=== PATIENT | male | born 1960 | race Caucasian/White ===

== ENCOUNTER → 2017-08-28 | Outpatient (CLI) | payer OTHER ==
[~2017-08-28] MED LIST: AMBIEN 10 MG TA10 MG PO; ATORVASTATIN CA40 MG PO; BETIMOL5 ML INTRAOCULR; CARISOPRODOL 3350 MG PO; CYCLOBENZAPRINE5 MG PO; DOXYCYCLINE 10100 MG PO; FLEXERIL PO; GABAPENTIN 100100 MG PO; INDAPAMIDE2.5 MG PO; LISINOPRIL20 MG PO; MUPIROCIN22 GM TRANSDERM; NAPROSYN500 MG PO; NEURONTIN 300300 M1 PO; NORCO 10-325 T1 EACH PO; NORCO 5-325 TA1 EACH PO; RESTASIS1 EACH OPHTHALMIC; SOMA250 MG PO; XANAX 0.5 MG0.5 MG PO; ZANAFLEX4 MG PO; ZOCOR20 MG PO; ZOCOR40 MG PO; ZOLPIDEM TART12.5 M1 PO; melatonin PO
--- NOTE | 2017-08-30 08:15 | PAINCON ---
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 Last seen in Pain Clinic on 07/31/2017. We had repeated his left ilioinguinal and left genitofemoral nerve blocks. Continued patient on baseline medication including hydrocodone 10/325 up to 4 a day. The patient had injured his left shoulder back in October. X-rays last Saturday showed small nodule in the left lung. He is waiting for a CT of the chest. MRI of the left shoulder is pending. We talked about possibly moving forward with left shoulder injection if pain continues problematic. Currently, the patient presents to Pain Clinic today noting his pain is a 3-4 on a VAS in the groin, 4-5 on his left shoulder. Continues the hydrocodone 10/325 up to 4 a day, gabapentin 300 mg b.i.d. PHYSICAL EXAMINATION: Shows 5 feet 10 inches, 189-pound gentleman, BMI is 27.1 kg/m2. Blood pressure 120/80, pulse 74, respiration 16. Very tender over the left ilioinguinal genitofemoral area with pain radiating into the testicle. Lower extremity strength is generally symmetric. Gait is mildly antalgic due to left groin pain. Again, pain in the left shoulder, decreased range of motion, slight decrease in strength. We reviewed the fact that opiate medications are being used to provide analgesia adequate to support activities of daily living, not attempting to achieve a specific pain score on the 0-10 Visual Analog Scale. The current opiate medications are providing sufficient analgesia to allow the patient to participate in activities of daily living. The patient is not exhibiting any aberrant behavior suggestive of drug diversion. The patient is not having any adverse reactions to medications. The patient is not suffering from daytime somnolence or mental acuity changes. The patient is managing opiate-induced constipation with appropriate etbe-lsf-juetaar agents and dietary considerations. The patient was counseled on concern for caution with operating a motor vehicle while using opiate medications. A physical exam was performed and the patient's functional status was evaluated. All patients with back pain were advised against the bed rest greater than 4 days and were advised to return to normal activities. Pain score assessment was noted and the treatment plan was reviewed [place] [address] PAIN MANAGEMENT CONSULTATION Name: DARIEN MENDEZ [id number] Admission: 08/28/17 Attend Phys: Danelle Rangel Discharge: Date of : 60 Report #: [id number] medications, both prescribed and OTC were reviewed and reconciled on the electronic medical record. Tobacco screening was accomplished and smoking cessation was advised when indicated. BMI was noted and diet/exercise modification was recommended for all patients following outside normal parameters. I reviewed with the patient today their responsibilities to safeguard prescription medications, reviewed their responsibility to utilize medications only as prescribed by the physician. They are to seek and receive pain medications only from 1 physician group ( [facility]). They are to use 1 pharmacy and keep the clinic informed if they change pharmacies. Their responsibilities include making followup visits in a timely fashion and to avoid abrupt discontinuation of medication usage. Their responsibilities further include bringing their medications (bottles from the pharmacy with residual pills) to the visit for possible confirmation of pill counts and the patient understands it is their responsibility to submit to random drug screens to ensure both that the medications prescribed are present, and that no other controlled substances are present. All prescriptions provided today were generated electronically. ASSESSMENT: Symptomatic ilioinguinal and genitofemoral nerve pain requiring high-risk complex medication management. RECOMMENDATIONS: 1. Continue gabapentin 300 mg b.i.d. We will resume naproxen sodium 500 mg b.i.d. We will need to check BUN and creatinine in the near future. 2. Ilioinguinal and genitofemoral nerve blocks accomplished today. ASSESSMENT #1: Ilioinguinal nerve pain and genitofemoral nerve pain. PROCEDURE: Left ilioinguinal nerve block. PROCEDURE NOTE: After written informed consent was obtained, the patient placed in the supine position. Skin overlying the anterosuperior iliac spine was cleansed with alcohol. Using 25-gauge needle 4 mL of 0.5 of preservative-free bupivacaine plus 20 mg triamcinolone was injected in a fanlike fashion. ASSESSMENT #2: Genitofemoral neuralgia. PROCEDURE: Genitofemoral nerve block. PROCEDURE NOTE: After written informed consent was obtained and the original ilioinguinal nerve block was accomplished, attention was directed at the left side of the pubic tubercle. Area was cleansed with alcohol. Using 25-gauge needle, 20 mg triamcinolone plus 4 mL of 0.5% preservative-free bupivacaine was injected in a fanlike fashion. Needle was removed. The area was cleansed and Band-Aids applied. The patient monitored for an appropriate period of time, [place] [address] PAIN MANAGEMENT CONSULTATION Name: VANESSADARIEN Anders Room: [facility] Mesha#: [id number] Admission: 08/28/17 Attend Phys: Danelle Rangel Discharge: Date of : 60 Report #: [id number] discharged in good stable condition with some subjective weakness in the left quadriceps. appears to be spread of local anesthetic from the ilioinguinal nerve block along the femoral nerve root. Assured the patient this should likely resolve. If it is not in 24 hours, we will have the patient report to the ER for further evaluation. <ELECTRONICALLY SIGNED> By: Shaheen Abraham DO 08/30/17 0815 0751 [id number] Abraham DO /nt
== END | disposition home or self-care (01) ==
LOC: M.PC 02:02
DX: M79.2 Neuralgia and neuritis, unspecified (principal); Z88.0 Allergy status to penicillin; Z79.891 Long term (current) use of opiate analgesic; Z79.899 Other long term (current) drug therapy

== ENCOUNTER → 2017-09-25 | Outpatient (CLI) | payer OTHER ==
--- NOTE | 2017-09-30 07:21 | PAINCON ---
[facility] [address] [place] [address] PAIN MANAGEMENT CONSULTATION Name: VANESSADARIEN Room: [facility] Zimmer#: [id number] Admission: 09/25/17 Attend Phys: Danelle Rangel Discharge: Date of : 60 Report #: [id number] THIS REPORT FOR: //name// CC: Martha Abraham The patient is a very pleasant 56-year-old gentleman, long treated for lumbar radiculopathy with component of genitofemoral and ilioinguinal neuralgia, requiring high risk complex medication management. Last seen in the pain clinic 08/28/2017. The patient was continued on hydrocodone 10/325 up to 4 a day. Gabapentin 300 mg b.i.d. and Naprosyn 500 mg b.i.d. He returns to pain clinic today. Notes that while the ilioinguinal and genitofemoral nerve blocks have been efficacious, he is starting to see a dwindling efficacy. He remarked that in 2013, he was getting lumbar epidural injections (L2-L3 left of midline) with excellent improvement of baseline pain at that time. He returns to pain clinic today noting subjective pain score 2 on a VAS, again pain in the left groin with slight decreased left hip flexion strength. 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 He was given IM and p.o. steroids and this is resolving nicely. PHYSICAL EXAMINATION: Today, shows 5 feet 10 inches, 184 pounds gentleman, BMI is 26.5 kg/m2. He is afebrile, temperature is 98.1, and blood pressure 117/71, pulse 78, and respiration 16. Again, pain in the left groin radiating into the anterior thigh, left testicular pain overall seems to be somewhat improved. Modestly antalgic gait, decreased left hip flexion strength. ASSESSMENT: 1. Symptomatic lumbar radiculopathy, ilioinguinal neuralgia, genitofemoral neuralgia, requiring high risk complex medication management. 2. Ilioinguinal and genitofemoral neuralgia RECOMMENDATION: 1. I will renew hydrocodone 10/325 up to 4 a day. 2. Renewed gabapentin 300 mg b.i.d., I have taken the liberty of writing for a 90-day prescription with 3 refills. 3. We will seek authorization for epidural injection under fluoroscopy, left of midline L2-L3 at next visit. PROCEDURE #1: Left ilioinguinal nerve block. PROCEDURE NOTE: After written informed consent was obtained, [place] [address] PAIN MANAGEMENT CONSULTATION Name: VANESSADARIEN Room: [facility] Zimmer#: [id number] Admission: 09/25/17 Attend Phys: Danelle Rangel Discharge: Date of : 60 Report #: [id number] placed in supine position. Skin overlying the anterior superior iliac spine was cleansed with alcohol. Using a 25-gauge needle, point approximately 1-2 cm medial and inferior to the ASIS, needle was injected in a fanwise fashion. Next, 5 mL of 0.5 preservative-free bupivacaine was injected. PROCEDURE #2: Left genitofemoral nerve block. PROCEDURE NOTE: After ilioinguinal nerve block was accomplished and with the same risk and benefit discussion, a skin wheal with Xylocaine was raised and a 25-gauge needle was used to inject 5 mL of 0.5% preservative-free bupivacaine from a point immediately superior to the lateral aspect of the pubic tubercle and injectate was in a fanwise medial fashion to cover the genitofemoral nerve. Needle was removed, the area was cleansed, Band-Aids applied. The patient was monitored for an appropriate period of time, discharged in good and stable condition. Follow up in 30 days for reevaluation and consideration for epidural injection at that time. <ELECTRONICALLY SIGNED> By: Shaheen Abraham DO 09/30/17 0721 0849 [id number] Abraham DO /nt
== END | disposition home or self-care (01) ==
LOC: M.PC 01:31
DX: G57.82 Other specified mononeuropathies of left lower limb (principal); G57.22 Lesion of femoral nerve, left lower limb; M54.16 Radiculopathy, lumbar region; Z79.899 Other long term (current) drug therapy

== ENCOUNTER → 2017-10-23 | Outpatient (CLI) | payer OTHER ==
--- NOTE | 2017-10-24 10:21 | PAINCON ---
[address] [address] PAIN MANAGEMENT CONSULTATION Name: DARIEN MENDEZ Room: [facility] Zimmer#: [id number] Admission: 10/23/17 Attend Phys: Danelle Rangel Discharge: Date of : 60 Report #: [id number] THIS REPORT FOR: //name// CC: Martha Abraham DATE OF SERVICE: 10/23/2017 The patient is a pleasant 57-year-old gentleman typically treated for ilioinguinal neuralgia, genitofemoral neuralgia (all on the left), complex medication management for chronic pain syndrome with component of lumbar radiculopathy. Last seen in pain clinic 09/25/2017. The patient was given ilioinguinal and genitofemoral nerve blocks at that time (sans steroid). The patient notes again incremental relief following the injection, though he does get longer relief with steroid injection. He was continued on hydrocodone 10/325 up to 4 a day with efficacy for chronic pain. We talked about moving forward with epidural injection for ongoing lumbar radicular pain. 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 He had prior had lumbar epidural injections [place] [address] Jose Joseph with some efficacy for radicular pain. He incidentally notes he has pain in the left shoulder, which occurred in a work-related injury. He had some point tenderness in the infraspinatus muscle with some radiation into the shoulder. Diagnostic studies are pending currently. PHYSICAL EXAMINATION: Otherwise shows pleasant 57-year-old gentleman, BMI is 26.5 kilograms per meter squared. Blood pressure 102/55, pulse 72, respirations are 18. Subjective pain score is 3-4 on a VAS. Pain in the left groin is exacerbated with standing and walking. Lower extremity strength is preserved. Modestly positive straight leg raise on the left with slight decreased left hip flexion strength corresponding to a component of left L3 radicular pain as well. Again, some point tenderness over the infraspinatus muscle. We reviewed the fact that opiate medications are being used to provide analgesia adequate to support activities of daily living, not attempting to achieve a specific pain score on the 0-10 Visual Analog Scale. The current opiate medications are providing sufficient analgesia to allow the patient to participate in activities of daily living. The patient is not exhibiting any aberrant behavior suggestive of drug diversion. The patient [place] [address] PAIN MANAGEMENT CONSULTATION Name: DARIEN MENDEZ Room: [facility]#: [id number] Admission: 10/23/17 Attend Phys: Danelle Rangel Discharge: Date of : 60 Report #: [id number] adverse reactions to medications. The patient is not suffering from daytime somnolence or mental acuity changes. The patient is managing opiate-induced constipation with appropriate loki-uph-uldkjpd agents and dietary considerations. The patient was counseled on concern for caution with operating a motor vehicle while using opiate medications. A physical exam was performed and the patient's functional status was evaluated. All patients with back pain were advised against the bed rest greater than 4 days and were advised to return to normal activities. Pain score assessment was noted and the treatment plan was reviewed with the patient. All current medications, both prescribed and OTC were reviewed and reconciled on the electronic medical record. Tobacco screening was accomplished and smoking cessation was advised when indicated. BMI was noted and diet/exercise modification was recommended for all patients following outside normal parameters. I reviewed with the patient today their responsibilities to safeguard prescription medications, reviewed their responsibility to utilize medications only as prescribed by the physician. They are to seek and receive pain medications only from 1 physician group ( [facility]). They are to use 1 pharmacy and keep the clinic informed if they change pharmacies. Their responsibilities include making followup visits in a timely fashion and to avoid abrupt discontinuation of medication usage. Their responsibilities further include bringing their medications (bottles from the pharmacy with residual pills) to the visit for possible confirmation of pill counts and the patient understands it is their responsibility to submit to random drug screens to ensure both that the medications prescribed are present, and that no other controlled substances are present. All prescriptions provided today were generated electronically. ASSESSMENT: Symptomatic lumbar radiculopathy, genitofemoral neuralgia and ilioinguinal neuralgia, requiring complex medication management. RECOMMENDATIONS: 1. Renew hydrocodone 10/325. I have taken the liberty of writing for 2 months of current medication. Reviewing the patient's opiate consent to treat contract, I noted that there is not a recent random drug screen, we will make a note and get a random buccal swab at next visit. 2. Chronic ilioinguinal and genitofemoral neuralgia. Recommendation, ilioinguinal and genitofemoral nerve blocks today with 20 mg triamcinolone each site. PROCEDURE NOTE [address] [address] PAIN MANAGEMENT CONSULTATION Name: DARIEN MENDEZ Room: [facility]#: [id number] Admission: 10/23/17 Attend Phys: Danelle Rangel Discharge: Date of : 60 Report #: [id number] PROCEDURE NUMBER ONE: Ilioinguinal nerve block. DESCRIPTION OF PROCEDURE: After written informed consent was obtained, the patient was placed in supine position. Skin overlying the left groin was cleansed with alcohol. Using 25-gauge needle insertion 0.12 cm inferior and medial to the anterior superior iliac spine on the left, 2 inch 25 gauge needle was injected in a fan-sauceda fashion delivering 20 mg triamcinolone plus 4 mL of 0.5% preservative-free bupivacaine. Needle was removed. PROCEDURE NUMBER TWO: Left genitofemoral nerve block. PROCEDURE NOTE: After initial ilioinguinal nerve block, attention was then directed at the pubic tubercle. An approximately 1 cm superior and lateral to the left superior border of the pubic tubercle was cleansed with alcohol, using a 25 gauge 2 inch needle was injected in a linear fashion immediately distributing another 20 mg triamcinolone plus 4 mL of 0.5% preservative-free bupivacaine. After both procedures were accomplished, needles removed. The area was cleansed, Band-Aids applied. The patient monitored for an appropriate period of time, discharged in good and stable condition. Follow up in 1 month. <ELECTRONICALLY SIGNED> By: Shaheen Abraham DO 10/24/17 1021 1214 [id number] Harrison Abraham DO /nt
== END | disposition home or self-care (01) ==
LOC: M.PC 03:36
DX: M54.16 Radiculopathy, lumbar region (principal); G58.8 Other specified mononeuropathies

== ENCOUNTER → 2017-11-20 | Outpatient (CLI) | payer OTHER ==
--- NOTE | 2017-11-22 09:51 | PAINCON ---
[address] [address] PAIN MANAGEMENT CONSULTATION Name: DARIEN MENDEZ [facility] [id number] Admission: 11/20/17 Attend Phys: Danelle Rangel Discharge: Date of : 60 Report #: [id number] THIS REPORT FOR: //name// CC: Martha Abraham DATE OF SERVICE: 11/20/2017 The patient is a very pleasant 57-year-old gentleman long treated at the [facility] prior by Dr. Jose Joseph and then in the last 2 years or more by myself. Suffers from a left ilioinguinal and genitofemoral neuralgia and has history of lumbar radiculopathy. More recently, he had had some trauma to the left shoulder, symptoms compatible with rotator cuff tear. We had planned on seeing patient today for lumbar epidural injection for radicular component of pain. While the injections have been helpful, his insurance issues have been quite problematic. He has been trying to see me regarding the left shoulder, but there may be a work comp issue. Unfortunately, we are unable to obtain authorization for the lumbar epidural injection for more radicular component of pain. He does note pain is quite problematic in the left groin, exacerbated with any activity. Fairly nominal today because he has been fairly sedentary, but with general work, pain gets up to 6 or 7 and interferes with function. He does take hydrocodone 10/325 up to 4 a day for breakthrough pain. He does note, however, that pain becomes quite problematic, again pain started to interfere with functional status. PHYSICAL EXAMINATION: Shows 5 feet 10 inches, 177-pound gentleman, BMI is 25 kg/m2. Blood pressure 112/61, pulse 83, respirations 16. Cervical range of motion is full. Does have decreased range of motion in left shoulder, though this exam was somewhat deferred. Diffuse tenderness across the low back, very tender in the left groin area radiating into the testicle. Physical examination compatible with: 1. Ilioinguinal and genitofemoral neuralgia. 2. Symptomatic lumbar radiculopathy by history, he has done well with epidural injections for more radicular component of pain. We reviewed the fact that opiate medications are being used to provide analgesia adequate to support activities of daily living, not attempting to achieve a specific pain score on the 0-10 Visual Analog Scale. The current opiate medications are providing sufficient analgesia to allow the patient to participate in activities of daily living. The patient is not exhibiting any aberrant behavior suggestive of drug diversion. The patient is not having any adverse reactions to medications. The patient [place] [address] PAIN MANAGEMENT CONSULTATION Name: VANESSADARIEN Anders Room: [facility] Mesha#: [id number] Admission: 11/20/17 Attend Phys: Danelle Rangel Discharge: Date of : 60 Report #: [id number] somnolence or mental acuity changes. The patient is managing opiate-induced constipation with appropriate memv-spn-eoykcqy agents and dietary considerations. The patient was counseled on concern for caution with operating a motor vehicle while using opiate medications. A physical exam was performed and the patient's functional status was evaluated. All patients with back pain were advised against the bed rest greater than 4 days and were advised to return to normal activities. Pain score assessment was noted and the treatment plan was reviewed with the patient. All current medications, both prescribed and OTC were reviewed and reconciled on the electronic medical record. Tobacco screening was accomplished and smoking cessation was advised when indicated. BMI was noted and diet/exercise modification was recommended for all patients following outside normal parameters. I reviewed with the patient today their responsibilities to safeguard prescription medications, reviewed their responsibility to utilize medications only as prescribed by the physician. They are to seek and receive pain medications only from 1 physician group ( [facility]). They are to use 1 pharmacy and keep the clinic informed if they change pharmacies. Their responsibilities include making followup visits in a timely fashion and to avoid abrupt discontinuation of medication usage. Their responsibilities further include bringing their medications (bottles from the pharmacy with residual pills) to the visit for possible confirmation of pill counts and the patient understands it is their responsibility to submit to random drug screens to ensure both that the medications prescribed are present, and that no other controlled substances are present. All prescriptions provided today were generated electronically. ASSESSMENT: Genitofemoral neuralgia, ilioinguinal neuralgia, groin pain, lumbar radiculopathy, and left shoulder pain. RECOMMENDATIONS: 1. We will renew hydrocodone 10/325. The patient is given a prescription for 100 tablets, release 4 weeks. 2. Genitofemoral and ilioinguinal nerve blocks today. 3. We will seek authorization to see the patient regarding left shoulder and consider lumbar epidural injection for ongoing radicular pain. PROCEDURE NOTE: Ilioinguinal and genitofemoral nerve blocks to be dictated later. <ELECTRONICALLY SIGNED> By: Shaheen Abraham DO 11/22/17 0951 1459 [id number] Abraham DO /nt
--- NOTE | 2017-11-22 09:51 | PAINCON ---
[facility] [address] [place] [address] PAIN MANAGEMENT CONSULTATION Name: DARIEN MENDEZ Room: [facility] Zimmer#: [id number] Admission: 11/20/17 Attend Phys: Danelle Rangel Discharge: Date of : 60 Report #: [id number] THIS REPORT FOR: //name// CC: Martha Abraham DATE OF SERVICE: 11/20/2017 PAIN CLINIC PROCEDURE NOTE PROCEDURES: 1. Ilioinguinal nerve block. 2. Genitofemoral nerve block. INDICATION: Ilioinguinal and genitofemoral neuralgia. PROCEDURE NOTE: After written informed consent obtained, the patient was placed in supine position. Skin overlying the left groin was cleansed with alcohol. A 25-gauge needle was inserted approximately 1-2 cm inferior medial to the left anterior superior iliac spine in a fanwise fashion. A 20 mg of triamcinolone plus 3 mL of 0.5% preservative-free bupivacaine was injected in the area covering the ilioinguinal nerve. Attention was then directed at the left ischial tubercle. This area again was cleansed with alcohol using a 25-gauge needle, the needle was inserted in a lateral medial directed fashion in somewhat of a fanwise distribution covering the ilioinguinal nerve, 20 mg triamcinolone plus 3 mL of 0.5% preservative-free bupivacaine was injected. Both needles removed. The area was cleansed and Band-Aids applied. The patient was monitored for an appropriate period of time, discharged in good and stable condition, noting incremental improvement in baseline pain. Followup is p.r.n. <ELECTRONICALLY SIGNED> By: Shaheen Abraham DO 11/22/17 0951 [id number] Abraham DO /nt
== END | disposition home or self-care (01) ==
LOC: M.PC 02:27
DX: G57.82 Other specified mononeuropathies of left lower limb (principal); G57.22 Lesion of femoral nerve, left lower limb; M25.512 Pain in left shoulder; Z88.0 Allergy status to penicillin; Z79.891 Long term (current) use of opiate analgesic; Z98.890 Other specified postprocedural states

== ENCOUNTER → 2017-11-29 | Outpatient (CLI) | payer OTHER | END | disposition home or self-care (01) | LOC: M.RAD 11-28 13:09 → M.MRI 11:00 | DX: M25.512 Pain in left shoulder (principal); Z88.0 Allergy status to penicillin; Z79.899 Other long term (current) drug therapy; Z79.891 Long term (current) use of opiate analgesic ==

== ENCOUNTER → 2017-12-04 | Outpatient (CLI) | payer OTHER ==
--- NOTE | 2017-12-05 06:52 | PAINCON ---
[address] [address] PAIN MANAGEMENT CONSULTATION Name: ANKUR MENDEZ [id number] Admission: 12/04/17 Attend Phys: Danelle Rangel Discharge: Date of : 60 Report #: [id number] THIS REPORT FOR: //name// CC: Martha Prado [facility] Shaheen Abraham ATTENTION: Dr. Mariela Andrade and Dr. Anukr Mandujano. 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 Presents to pain clinic today for new complaint, that being pain in the left shoulder. The patient notes he had a minor injury of the shoulder in October of 2015, had pain in the anterior left shoulder following carrying in some work related objects and opening the door at work. Was seen by the work comp physician. X-rays were ordered and he was scheduled for physical therapy. Range of motion, stretching and massage seem to improve symptoms. He did reasonably well until 08/21/2017. Again, carrying in some inconsequential objects, 10-pound computer monitor screens, about 20 repetitive cycles, he again noted acute exacerbation of pain in the left shoulder. Now it has developed to the point that the pain is in the scapula, radiating into the shoulder with tingling going into the middle fingers. He is left hand dominant. This is obviously problematic. Did get an MRI, arthroscopy of that shoulder. He returns to pain clinic today, noting pain is 2-3 on a VAS. Pain is exacerbated with any range of motion of the left shoulder. He is on some chronic analgesic agents including gabapentin 100 mg 3 a day, hydrocodone 10/325 three to four times a day, limit 100 tablets for 30 days for chronic back and ilioinguinal pain. This seems to help some with the shoulder. Physical exam shows 5 feet 10 inch, 178 pound gentleman, BMI is 25.6 kilograms per meter squared. Blood pressure 134/78, pulse 68, respirations 16. Alert and oriented to person, place and time and judged to be a reasonable historian. Left shoulder range of motion is limited, tender with movement of the shoulder, tender with stressing the shoulder, though muscle groups appear to be intact, specifically rotator, deltoid, biceps, triceps strength. We reviewed the MRI arthrogram from 11/29/2017. Concerningly the findings note extensive 270 degree labral tear with cleft of contrast involving the superior, anterior, inferior and posterior labrum sparing only the 11 to 9 positions, small paralabral cysts are noted along the posterior margin, the inferior posterior labrum at the 7-8 positions. Intact rotator cuff is noted. Mild AC joint, [place] [address] PAIN MANAGEMENT CONSULTATION Name: ANKUR MENDEZ Room: [facility] Zimmer#: [id number] Admission: 12/04/17 Attend Phys: Danelle Rangel Discharge: Date of : 60 Report #: [id number] Medication list was reconciled. ASSESSMENT: Left shoulder fairly extensive labral tear in a gentleman with multiple comorbidities including chronic pain from left ilioinguinal neuralgia, stable on complex medication management. RECOMMENDATION: We will refer to Orthopedics, the patient would prefer [facility]. We will send a copy of this dictation both to Eve Romero, the nursery manager for patient's work compensation as well as [facility], attention doctors Ankur Mandujano and Mariela Andrade. We will request consultation regarding surgical intervention for left shoulder. The patient was discharged in good and stable condition. Follow up as needed for medication management. Total contact time was approximately 45 minutes (08:00 - 08:45) reviewing therapeutic options, diagnostic studies, physical exam and counseling the patient regarding treatment options, specifically likely need for orthopedic surgical intervention. <ELECTRONICALLY SIGNED> By: Shaheen Abraham DO 12/05/17 0652 [id number] [id number] Abraham DO /nt
== END ==
LOC: M.PC 02:33
DX: M54.16 Radiculopathy, lumbar region (principal); M25.512 Pain in left shoulder; G89.29 Other chronic pain; Z79.899 Other long term (current) drug therapy

== ENCOUNTER → 2018-01-15 | Outpatient (CLI) | payer OTHER ==
--- NOTE | 2018-01-16 07:50 | PAINCON ---
[address] [address] PAIN MANAGEMENT CONSULTATION Name: DARIEN MENDEZ Room: [facility] Zimmer#: [id number] Admission: 01/15/18 Attend Phys: Danelle Rangel Discharge: Date of : 60 Report #: [id number] THIS REPORT FOR: //name// CC: Martha Abraham The patient is a 57-year-old gentleman, being seen for work comp related left shoulder pain, along with chronic left ilioinguinal groin pain and lumbar radicular pain. I have referred the patient to [facility], he saw Dr. Alexandro Raphael who recommended no surgical intervention at this time. There was concern the patient had been found to have pulmonary nodule and what appeared to be perhaps metastatic bony activity on diagnostic findings evaluating the shoulder. It turns out that he does have solitary discrete nodules in the lung, which do not appear to be a cancer. There is no adenopathy noted, and the lesion appeared to be discrete. His pulmonary physician has recommended "watchful waiting" with no interventional therapy at this time for the pulmonary lesions. Bony uptake changes thought related to prior rib fractures, healed. The patient was dissatisfied with the fact that the orthopedic surgeon recommended no surgery for his shoulder. He claims that he has significant impact in the functional status, though he appears to have somewhat improving range of motion left shoulder, albeit ongoing decreased strength. The patient has continued to take hydrocodone for chronic left groin and radicular pain, one tablet 2-4 times a day. Tizanidine 4 mg t.i.d. for spasm on a p.r.n. basis and gabapentin 300 mg b.i.d. PHYSICAL EXAMINATION: Otherwise shows ongoing axial back pain radiating to the left groin. Slight decreased left hip flexion strength. We sought authorization for epidural injection under fluoroscopy today. The patient requested we move forward with this. ASSESSMENT: 1. Chronic pain syndrome requiring complex medication management, history of ilioinguinal neuralgia and left shoulder rotator tear, no interventional therapy or medication changes for same. 2. Lumbar epidural injection under fluoroscopy today for ongoing lumbar radicular component of pain. PROCEDURE: Lumbar epidural injection under fluoroscopy. PROCEDURE NOTE: After both written and informed consent to include risk of spinal cord damage, increased pain, weakness and dural puncture, the patient was taken to the fluoroscopy suite, placed in the [place] [address] PAIN MANAGEMENT CONSULTATION Name: DARIEN MENDEZ Room: [facility]#: [id number] Admission: 01/15/18 Attend Phys: Danelle Rangel Discharge: Date of : 60 Report #: [id number] prep and drape, a skin wheal with lidocaine was raised. A 22-gauge epidural Tuohy needle was inserted in the midline at L3-4 with good loss to resistance. Negative aspiration for cerebrospinal fluid or blood was noted. Then 1 mL of Omnipaque under biplanar fluoroscopy showed good spread within the epidural space. This was followed with 60 mg of triamcinolone plus 1 mL of 1.5% preservative-free Xylocaine, 0.5 mL Xylocaine was then injected to flush the needle; it was removed. The patient was monitored for an appropriate period of time and discharged in good and stable condition. The patient was seen from 8:00 a.m. to 8:30 regarding other medical issues (left shoulder rotator cuff tear, pulmonary pathology and medication management). He was taken to the fluoroscopy suite at 9:08.. <ELECTRONICALLY SIGNED> By: Shaheen Abraham DO 01/16/18 0750 1429 [id number] Abraham DO /nt
== END | disposition home or self-care (01) ==
LOC: M.PC 03:54
DX: M54.16 Radiculopathy, lumbar region (principal); G89.4 Chronic pain syndrome; R10.30 Lower abdominal pain, unspecified; M25.512 Pain in left shoulder; Z98.890 Other specified postprocedural states; Z79.891 Long term (current) use of opiate analgesic; Z88.0 Allergy status to penicillin; Z79.899 Other long term (current) drug therapy

== ENCOUNTER → 2018-02-19 | Outpatient (CLI) | payer OTHER ==
--- NOTE | 2018-02-20 07:27 | PAINCON ---
[address] [address] PAIN MANAGEMENT CONSULTATION Name: DARIEN MENDEZ Room: [facility] Mesha#: [id number] Admission: 02/19/18 Attend Phys: Danelle Rangel Discharge: Date of : 60 Report #: [id number] THIS REPORT FOR: //name// CC: Alexandro Abraham DATE OF SERVICE: 02/19/2018 The patient is a 57-year-old gentleman long treated for lumbar radiculopathy, ilioinguinal neuralgia, requiring complex medication management. Comorbidity includes left shoulder pain, myofascial pain component. Last seen in pain clinic 01/15/2018. We sought authorization for trigger point injections left infraspinatus muscle. The patient did see Dr. Alexandro Raphael regarding left shoulder. I personally spoke to Dr. Raphael after the patient last visit (01/15/2018). Dr. Raphael suggested that he was trying to be as minimally invasive as possible. Suggested physical therapy. If, however, symptoms are not improving he said he would be happy to see the patient for reevaluation, consideration for surgery only if indicated. To the patient's credit, his range of motion is actually fairly good now. Left shoulder, though he does have subjective pain. Does have ongoing trigger point in the left infraspinatus muscle. The patient notes the last injection, epidural injection for lumbar radicular pain, left to midline L3-L4 (afforded a very good relief of his ilioinguinal pain. Better actually than the prior ilioinguinal injections, we have been doing). The patient continued hydrocodone 10/325 anywhere from 2-4 tablets a day, tizanidine 4 mg for spasm, gabapentin 300 mg b.i.d. RECOMMENDATIONS: We will seek authorization for repeat lumbar epidural injection left midline L3-L4 in 2 weeks. I did renew hydrocodone 10/325, dispensed 100 tablets for release in 4 weeks. We will have the patient follow up with Dr. Raphael for ongoing medication management. PROCEDURE NOTE: Left trigger point injections infraspinatus. DESCRIPTION OF PROCEDURE: After written informed consent was obtained, the patient placed in seated position. Skin overlying the left shoulder blade was cleansed with alcohol. Using 25-gauge needle, 20 mg triamcinolone plus 5 mL of 0.5% preservative-free bupivacaine was injected into and around the left infraspinatus muscle. The patient had good subjective relief of pain. Discharged in good and stable condition. Follow up in 2 weeks. <ELECTRONICALLY SIGNED> By: Shaheen Abraham DO 02/20/18 0727 1356 [id number] Abraham DO /nt
== END | disposition home or self-care (01) ==
LOC: M.PC 04:59
DX: M79.1 Myalgia (principal); Z98.890 Other specified postprocedural states; Z79.891 Long term (current) use of opiate analgesic; Z88.0 Allergy status to penicillin; Z79.899 Other long term (current) drug therapy

== ENCOUNTER → 2018-04-17 | Outpatient (CLI) | payer OTHER ==
--- NOTE | 2018-04-23 16:41 | PAINCON ---
[address] [address] PAIN MANAGEMENT CONSULTATION Name: DARIEN MENDEZ [facility] Zimmer#: [id number] Admission: 04/17/18 Attend Phys: Nanette Gar MD Discharge: Date of : 60 Report #: [id number] THIS REPORT FOR: //name// CC: Martha Gar DATE OF SERVICE: 04/17/2018 FOLLOWUP COMPLAINT: Pain in the inguinal area. HISTORY OF PRESENT ILLNESS: The patient is a 57-year-old gentleman who has been seen and followed in the pain clinic by Dr. Shaheen Abraham. 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 He had problems and underwent surgery for a left inguinal hernia. Since that time, scar tissue has developed. He has developed ilioinguinal neuralgia. He states that he has had injections in the area as well as huge conservative methods to help control the pain. He works as an IT person. Walking up and down stairs can really exacerbate his discomfort. He rates his pain as a 4-5 today. The weather is inclement. Usually it is about a 2. Does have some problems with osteoarthritis type symptoms involving his knee. Also, has some left shoulder discomfort as well. Often there is a waist band to help control the pain in the groin area. The patient has seen Dr. Thomas for his left shoulder. Physical therapy was suggested. The patient finds that his medical regimen of tizanidine, gabapentin and Seltzer are helpful. He would like to continue with these medications. He has returned to the pain clinic for renewal of his medications and the possibility of undergoing an epidural injection in the area of the ilioinguinal nerve in the future. ALLERGIES: PENICILLIN. MEDICATIONS: Xanax 0.5 mg, Lipitor 40 mg daily, Restasis one drop b.i.d., Neurontin 300 mg b.i.d., hydrocodone 10/325, indapamide 2.5 mg, lisinopril 20 mg, timolol intraocular, Zanaflex 4 mg t.i.d. and Ambien 10 mg at bedtime. PAST MEDICAL HISTORY: Hypertension, hyperlipidemia, hypercholesterolemia, colon problems, stomach problems and joint disease. 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 REVIEW OF SYSTEMS: Generally good health, some weight change, ringing in the ears, bowel changes, [place] [address] PAIN MANAGEMENT CONSULTATION Name: DARIEN MENDEZ Room: [facility] Zimmer#: [id number] Admission: 04/17/18 Attend Phys: Nanette Gar MD Discharge: Date of : 60 Report #: [id number] LABORATORY DATA: No new laboratory is available at the time of our interview. PAIN CLINIC ASSESSMENT: 1. Osteoarthritic changes in the knee. 2. Height 5 feet 10 inches, weight 176 pounds, BMI is 25.3. 3. Vital signs: Blood pressure 138/85, heart rate 77, respiratory rate 16, room air saturation 97% and temperature 98.6. 4. Pain score 4/10. Oftentimes is a 2. 5. Fall risk. The patient has not fallen in the last 3 months. 6. Blood thinner. The patient is not on a blood thinning medication. 7. Hypertension. The patient is being treated for hypertension. 8. Opioid therapy greater than 6 weeks. The patient is on an opioid regimen and takes his hydrocodone as tolerated his pain. 9. Risk assessment tool. 10. Functional assessment tool. 11. Recreational drug use. 12. Tobacco. 13. Alcohol: The patient denies use of alcoholic beverages. PHYSICAL EXAMINATION: GENERAL: The patient is a well-developed, well-nourished white male. Appears his stated age. He is alert and oriented x 3. Affect is appropriate. Speech is fluent. HEENT: Normocephalic, atraumatic. Extraocular eye muscles intact. Sclerae nonicteric. Mucous membranes are moist. The patient states that he has had a detached retina in 2017. NECK: Without adenopathy or JVD. LUNGS: Clear to auscultation. HEART: Regular rate. ABDOMEN: Nontender. MUSCULOSKELETAL: Without significant scoliosis, kyphosis or lordosis. The patient has pain and discomfort in the right groin area. Also, has some pain in the mid back area in the left paraspinous area. IMPRESSION: Chronic right ilioinguinal neuropathy, hypertension, hyperlipidemia, hypercholesterolemia, colon problems, stomach problems and joint disease. RECOMMENDATIONS: We discussed treatment options with the patient. We will continue with his current medication regimen. He feels that gabapentin 100 mg, tizanidine 4 mg, hydrocodone 10/325 one p.o. q. 4 hours p.r.n. is helpful. A script for 2 months of medication has been written. The patient will follow up in the near future. He would like to undergo a thoracic epidural steroid injection in the area of the origination of the ilioinguinal nerve. Injections in that area in the past have been helpful. When he returns, we will consider [address] [address] PAIN MANAGEMENT CONSULTATION Name: DARIEN MENDEZ Room: [facility] Zimmer#: [id number] Admission: 04/17/18 Attend Phys: Nanette Gar MD Discharge: Date of : 60 Report #: [id number] an injection. We would like to thank you for letting us participate in his care. We hope he continues to improve. <ELECTRONICALLY SIGNED> By: Nanette Gar MD 04/23/18 1641 1542 [id number]. Braulio Gar MD /nt
== END ==
LOC: M.PC 03:23
DX: G62.89 Other specified polyneuropathies (principal); I10 Essential (primary) hypertension; E78.5 Hyperlipidemia, unspecified; E78.00 Pure hypercholesterolemia, unspecified

== ENCOUNTER → 2018-05-27 | Outpatient (CLI) | payer OTHER ==
--- NOTE | 2018-07-09 15:49 | PAINCON ---
[address] [address] PAIN MANAGEMENT CONSULTATION Name: DARIEN MENDEZ Room: [facility] Cresencio.#: [id number] Admission: 05/27/18 Attend Phys: Nanette Gar MD Discharge: Date of : 60 Report #: [id number] THIS REPORT FOR: //name// CC: Martha Gar DATE OF SERVICE: 05/27/2018 FOLLOWUP COMPLAINT: Left groin pain. HISTORY OF PRESENT ILLNESS: The patient is a 57-year-old gentleman who has been seen in the pain clinic and followed by Dr. Shaheen Son. The patient has continued to have pain and discomfort involving his left inguinal area. He was in the for almost 20 years. He had surgery in the left groin area. He has been told that he developed some ilioinguinal scar tissue. He has had some injections in this area in the past. 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 He notes that walking up and down stairs and activities can exacerbate his pain. Rates his pain as a 3-4/10 today. Also, has some osteoarthritic changes involving his left shoulder and his knee. Finds that his medical regimen of tizanidine, gabapentin and [place] are helpful. He has returned to the pain clinic on with the desire to undergo an epidural injection to help improve the pain and discomfort, which he is experiencing. ALLERGIES: PENICILLIN. MEDICATIONS: Zanaflex 0.5 mg, Lipitor 40 mg daily, Restasis one drop b.i.d., Neurontin 300 mg b.i.d., hydrocodone 10/325, indapamide 2.5 mg, lisinopril 20 mg, Timolol intra-articular, Zanaflex 4 mg t.i.d., Ambien 10 mg at bedtime. PAIN CLINIC ASSESSMENT/PQRS: 1. Osteoarthritic changes involving his knee. The patient is not being treated for rheumatoid arthritis. 2. Height 5 feet 10 inches, weight 186 pounds, BMI 25.3. 3. Vital signs: Blood pressure 127/72, heart rate 69, respiratory rate 16, room air saturation 96%, temperature 98.0. 4. Pain score 3-4/10. 5. Fall risk. The patient has not fallen in the last 3 months. 6. Blood thinner. The patient is not on a blood thinning medication. 7. Hypertension. The patient is being treated for hypertension. 8. Opioid therapy greater than 6 weeks. The patient is on an opioid regimen and refuses medication from one source. 9. Risk assessment tool. 10. Functional assessment tool. 11. Recreational drug use. The patient denies use of recreational drugs. 12. Tobacco: The [place] [address] PAIN MANAGEMENT CONSULTATION Name: DARIEN MENDEZ Room: [facility]#: [id number] Admission: 05/27/18 Attend Phys: Nanette Gar MD Discharge: Date of : 60 Report #: [id number] 11. Alcohol: The patient denies frequent use of alcoholic beverages. PHYSICAL EXAMINATION: GENERAL: The patient is a well-developed, well-nourished white male. He appears his stated age. He is alert and oriented x 3. Affect is appropriate. Speech is fluent. HEENT: Normocephalic, atraumatic. Extraocular eye muscles intact. Sclerae nonicteric. Mucous membranes are moist. NECK: Without adenopathy or JVD. LUNGS: Clear to auscultation without, rales or rhonchi. HEART: Regular rate. S1, S2. ABDOMEN: Nontender. MUSCULOSKELETAL: Without significant scoliosis, kyphosis or lordosis. The patient does have some pain and discomfort in the lower portion of his mid back, also has some left paraspinous muscle tenderness. The patient has some pain and discomfort, pain involving the left groin area. IMPRESSION: 1. Chronic ilioinguinal neuropathy. 2. Hypertension. 3. Hyperlipidemia. 4. Hypercholesterolemia. 5. Chronic colon problems. 6. Stomach problems and joint disease. RECOMMENDATIONS: We discussed treatment options with the patient. Risks and benefits of an injection were again discussed. Possible complications of the procedure were discussed and reviewed. We explained the possibility of bleeding, infection, spinal headache, nerve damage/paralysis weakness and the patient elects to proceed. PROCEDURE NOTE: The patient was taken to the examination area. He was then assisted in getting on the examination table. He was placed in the prone position, a 0.25% bupivacaine was infiltrated in the midline area was injected at L2-L3. A left paraspinous direction was chosen. The patient states today most of his pain and discomfort was involving the left side. Using anterior and posterior viewing appropriate location was noted. A total of 80 mg Depo-Medrol, 40 mg triamcinolone and 2 mL of 0.25% bupivacaine was injected. The patient tolerated the procedure well. There were no complications. Total of 9 seconds fluoroscopy time was used. The patient was then taken to the recovery room. He remained there for an appropriate amount of time. There were no complications. He will follow up in the near future. We would like to thank you for letting us participate in his care. We hope he continues to improve. He will continue [address] [address] PAIN MANAGEMENT CONSULTATION Name: DARIEN MENDEZ Room: [facility] Zimmer#: [id number] Admission: 05/27/18 Attend Phys: Nanette Gar MD Discharge: Date of : 60 Report #: [id number] with his current medications of gabapentin, tizanidine, and [place] 3.5 1 p.o. q. 4-6 hours p.r.n. pain. <ELECTRONICALLY SIGNED> By: Nanette Gar MD 07/09/18 1549 1212 [id number]. Braulio Gar MD /nt
== END | disposition home or self-care (01) ==
LOC: M.PC 04:51
DX: M54.5 Low back pain (principal); G62.9 Polyneuropathy, unspecified; I10 Essential (primary) hypertension; E78.5 Hyperlipidemia, unspecified; E78.00 Pure hypercholesterolemia, unspecified; Z88.0 Allergy status to penicillin; Z79.899 Other long term (current) drug therapy; Z79.891 Long term (current) use of opiate analgesic; Z98.49 Cataract extraction status, unspecified eye

== ENCOUNTER → 2018-08-05 | Outpatient (CLI) | payer OTHER ==
--- NOTE | ~2018-08-05 | PAINCON ---
[address] [address] PAIN MANAGEMENT CONSULTATION Name: DARIEN MENDEZ Room: [facility] Mesha#: [id number] Admission: 08/05/18 Attend Phys: Nanette Gar MD Discharge: Date of : 60 Report #: [id number] THIS REPORT FOR: //name// CC: Martha Gar DATE OF SERVICE: 08/05/2018 FOLLOWUP COMPLAINT: Pain in the low back area down into the groin. FOLLOWUP HISTORY: The patient is a 57-year-old gentleman who has been followed in the pain clinic because of chronic pain. He has pain and discomfort involving his left inguinal area. The patient has had this problem for about 20 years. He has had surgery in the groin area for a number of times. He has been told that he has developed an inguinal scar tissue. In the past, he has had injections in that area. Because of its proximity to the femoral nerve it was noted a number of times where he developed some weakness in his leg as a result of the local anesthetic. He finds that injection in his low back area at the L2-L3 area has been as successful. At this juncture, he has returned today with a desire to undergo another epidural steroid injection to help quell the pain and discomfort. He has had no complication from the procedures with the epidural in the past. He desires another injection. He has had hernia surgery in that area 4 times. He has also been working on weight loss. He states that he has been inactive. Then, he has noted a 25-pound weight increase. He is working to decrease that weight gain. ALLERGIES: PENICILLIN. CURRENT MEDICATIONS: Zanaflex 0.5 mg, Lipitor 40 mg, Restasis one drop b.i.d., Neurontin 300 mg b.i.d., hydrocodone 10/325, indapamide 2.5 mg, lisinopril 20 mg, Timolol intra-articular, Zanaflex 4 mg t.i.d., and Ambien 10 mg at bedtime. PAIN CLINIC ASSESSMENT/PQRS: 1. Osteoarthritis is noted in his knee. He has not been treated for rheumatoid arthritis. 2. Height 5 feet 10 inches, weight 205 pounds, BMI is 29.6. 3. Vital Signs: Blood pressure 136/87, heart rate 84, respiratory rate 16, room air saturation 92%, temperature 98.6. 4. Pain intensity of 3/10. 5. Fall history: The patient has not fallen in the last 3 months. 6. Blood thinner. The patient is not on a blood thinning medication. 7. Hypertension. The patient has been treated for hypertension. 8. Opioid greater than 6 weeks. The patient received medication from one source, [place] [address] PAIN MANAGEMENT CONSULTATION Name: DARIEN MENDEZ Room: [facility]#: [id number] Admission: 08/05/18 Attend Phys: Nanette Gar MD Discharge: Date of : 60 Report #: [id number] 9. Risk assessment tool, low for opioid use. 10. Functional assessment tool. 11. Recreational drug use. The patient denies use of recreational drugs. 12. Tobacco: The patient denies use of tobacco. 13. Alcohol. The patient drinks socially/occasional. PHYSICAL EXAMINATION: GENERAL: The patient is a well-developed, well-nourished white male. Appears his stated age. He is alert and oriented x 3. His affect is appropriate. Speech is fluent. HEENT: Normocephalic, atraumatic. Extraocular eye muscles intact. Sclerae nonicteric. Mucous membranes are moist. NECK: Without adenopathy or JVD. LUNGS: Clear to auscultation without rales or rhonchi. HEART: Regular rate. S1, S2. ABDOMEN: Nontender. Bowel sounds present. MUSCULOSKELETAL: Without significant scoliosis, kyphosis or lordosis. The patient does have pain and discomfort in the lower portion of his abdominal area in the area of the groin, this involves the left side. Muscle strength in lower extremities judged to be 5/5 for the major muscle groups without sensory change. IMPRESSION: 1. Chronic inguinal neuropathy, left side. 2. Hypertension. 3. Hyperlipidemia. 4. Hypercholesterolemia. 5. Chronic colon problems. 6. Stomach problems with joint disease. RECOMMENDATIONS: We discussed treatment options with the patient. Risks and benefits of an epidural steroid injection in the L2-L3 area were again reviewed. The patient noted benefit from the last injection. He had no complications. He has returned today with a desire to undergo another injection. He has gleaned greater than 60% improvement in his pain after the injections. He would also like to continue with his Sargeant medication and tizanidine. He would like to have these medications as well as the gabapentin renewed. PROCEDURE NOTE: We are again discussed the possible complication of the procedure, which could include but are not limited to infection, worsening pain, no improvement in pain, bleeding, nerve damage and paralysis. The patient elects to proceed. The patient was taken to the procedure area. He was assisted in getting on the examination table. A pillow was placed under his abdomen to bolster and improve positioning. Fluoroscopy using anterior, posterior as well as lateral viewing were implemented. The patient's back was sterilely prepped with a Betadine solution. It was allowed to dry. A 0.25% bupivacaine was infiltrated using a 21-gauge needle at the L2-[place] [address] PAIN MANAGEMENT CONSULTATION Name: VANESSADARIEN Room: [facility]#: [id number] Admission: 08/05/18 Attend Phys: Nanette Gar MD Discharge: Date of : 60 Report #: [id number] midline approach with a 17-gauge Tuohy epidural needle was used directing towards the left paraspinous area. A total of 80 mg Depo-Medrol, 40 mg triamcinolone and 2 mL of 0.25% bupivacaine was injected. The patient tolerated the procedure well. There were no complications. He remained in the pain clinic for an appropriate amount of time. He will follow up in the future as needed. We would like to thank you for letting us participate in his care. We hope he continues to improve. By: [id number]. Braulio Gar MD /nt
== END | disposition home or self-care (01) ==
LOC: M.PC 06-12 08:00
DX: M54.16 Radiculopathy, lumbar region (principal); G62.9 Polyneuropathy, unspecified; I10 Essential (primary) hypertension; E78.5 Hyperlipidemia, unspecified; E78.00 Pure hypercholesterolemia, unspecified; M17.10 Unilateral primary osteoarthritis, unspecified knee; Z98.890 Other specified postprocedural states; Z88.8 Allergy status to other drugs, medicaments and biological substances; Z79.899 Other long term (current) drug therapy; Z79.891 Long term (current) use of opiate analgesic

== ENCOUNTER → 2018-09-30 | Outpatient (CLI) | payer OTHER ==
[~2018-09-30] MED LIST changes: +HYDROCODON-ACE1 EAC5 PO
--- NOTE | ~2018-09-30 | PAINCON ---
[address] [address] PAIN MANAGEMENT CONSULTATION Name: DARIEN MENDEZ Room: [facility] Zimmer#: [id number] Admission: 09/30/18 Attend Phys: Nanette Gar MD Discharge: Date of : 60 Report #: [id number] THIS REPORT FOR: //name// CC: Martha Morel DATE OF SERVICE: 09/30/2018 CHIEF COMPLAINT: Here for an epidural steroid injection. HISTORY OF PRESENT ILLNESS: The patient is a 57-year-old gentleman who has been followed in the Pain Clinic. As you recall, he has chronic pain, which has been quite problematic. It involves his left inguinal area and anterior thigh. He has undergone epidural steroid injections in the lumbar area. He has noted significant improvement in his pain. He is planning on going to [employer], this is where his family is. His mom has Alzheimer's disease. He has some time off and is going to visit them. He has been quite busy. He states that after going to [employer], going to [employer] athletic activities and being increasingly active, he has noticed worsening of his pain and discomfort. He would like to undergo an epidural steroid injection. Injections at the L2-L3 area were successful and significantly improved his pain and discomfort. He has returned today for an epidural steroid injection in the same distribution. As you may recall, initially his pain has been problematic since a hernia repair in the groin area. He states that he has had surgery in this area 4 times. He has been told that there is scar tissue, which has developed. ALLERGIES: PENICILLIN. CURRENT MEDICATIONS: Zanaflex 0.5 mg, Lipitor 40 mg, Restasis 1 drop b.i.d., Neurontin 300 mg b.i.d., hydrocodone 10/325, indapamide 2.5 mg, lisinopril 20 mg, timolol, Zanaflex 4 mg t.i.d., Ambien 10 mg at bedtime. PAIN CLINIC ASSESSMENT AND PQRS: 1. Osteoarthritis involving his knee: He is not being treated for rheumatoid arthritis. 2. Height 5 feet 10 inches, weight 197 pounds, BMI is 28.4. 3. Vital signs: Blood pressure 126/67, heart rate 82, respiratory rate 16, room air saturation 96%, temperature 97.6. 4. Pain intensity score: 4/10. 5. Fall history: The patient has not fallen in the last 3 months. 6. Blood dinner: The patient is not on a blood thinning medication. 7. Hypertension: The patient has been treated for hypertension. 8. Opioids greater than 6 weeks: The patient receives his medication from [place] [address] PAIN MANAGEMENT CONSULTATION Name: DARIEN MENDEZ Room: [facility]#: [id number] Admission: 09/30/18 Attend Phys: Nanette Gar MD Discharge: Date of : 60 Report #: [id number] 9. Risk assessment tool: Low for opioid use. 10. Functional assessment tool. 11. Recreational drug use: The patient denies use of recreational drugs. 12. Tobacco: The patient denies use of tobacco. 13. Alcohol. The patient drinks socially on occasion. PHYSICAL EXAMINATION: GENERAL: The patient is a well-developed, well-nourished, white male. He appears his stated age. He is alert and oriented x 3. His affect is appropriate. Speech is fluent. HEENT: Normocephalic, atraumatic. Extraocular eye muscles intact. Sclerae nonicteric. Mucous membranes are moist. NECK: Without adenopathy or JVD. LUNGS: Clear to auscultation without rhonchi or rales. HEART: Regular rate. S1 and S2. ABDOMEN: Nontender. Bowel sounds present. MUSCULOSKELETAL: Without significant scoliosis, kyphosis or lordosis. The patient has pain and discomfort in the anterior portion of his left leg and into the area of his groin as well as in the L2-L3 dermatomal distribution, which has been improved with epidural steroid injection in the past. Muscle strength of the lower extremity is judged to be 5-/5 on the left and 5/5 on the right. IMPRESSION: 1. Chronic inguinal neuropathy, left side. 2. Hypertension. 3. Hyperlipidemia. 4. Hypercholesterolemia. 5. Chronic colon problems. 6. Stomach problems with joint disease. RECOMMENDATIONS: We discussed treatment options with the patient. The patient does have pain and discomfort in the groin area. He feels that the epidural steroid injection at the L2-L3 area has been quite helpful, this has been beneficial. At this juncture, he would like to undergo another epidural steroid injection given that he has gleaned significant improvement after the last injection. Possible complication of the procedure, which could include but are not limited to infection, increased muscle soreness, headache, bleeding, worsening of pain, nerve damage, paralysis, spinal headache were reviewed. The patient elects to proceed. PROCEDURE NOTE: The patient was taken to the procedure area. He was assisted in getting on the examination table. A pillow was placed under his abdomen to bolster his positioning. His back was sterilely prepped with Betadine solution. Fluoroscopy using anterior and posterior as well as lateral viewing were implemented. The patient's back was injected at the site of L2-L3 with 0.25% bupivacaine using a 25-gauge needle. A left paraspinal approach at [place] [address] PAIN MANAGEMENT CONSULTATION Name: DARIEN MENDEZ Room: [facility].#: [id number] Admission: 09/30/18 Attend Phys: Nanette Gar MD Discharge: Date of : 60 Report #: [id number] undertaken. A 17-gauge Tuohy with loss of resistance technique was used to gain access to the epidural space. There was no CSF, heme or paresthesia. Total of 80 mg Depo-Medrol, 40 mg triamcinolone, and 2 mL of 0.25% bupivacaine was injected. The patient tolerated the procedure well. There were no complications. He remained in the Pain Clinic for an appropriate amount of time. 12 seconds fluoroscopy time was used. The patient's pain decreased to 2 at the time of discharge. He will follow up in the future as needed. A script for hydrocodone 10/325 one p.o. q. 4 hours, a total of 100 tablets, was provided. He will call us if he has any concerns. A total of 8 weeks opioid medication has been written, one for 1 month immediate release and an additional 4 weeks. Hopefully, the patient has a good time up [place] with his family. We would like to thank you for letting us participate in his care. We hope he continues to improve. By: [id number]. Braulio Gar MD /jyoti
== END | disposition home or self-care (01) ==
LOC: M.PC 09:10
DX: M54.16 Radiculopathy, lumbar region (principal); G89.29 Other chronic pain; G90.09 Other idiopathic peripheral autonomic neuropathy; I10 Essential (primary) hypertension; E78.5 Hyperlipidemia, unspecified; E78.00 Pure hypercholesterolemia, unspecified; M19.90 Unspecified osteoarthritis, unspecified site; K63.9 Disease of intestine, unspecified; Z88.0 Allergy status to penicillin; Z79.891 Long term (current) use of opiate analgesic; Z79.899 Other long term (current) drug therapy

== ENCOUNTER → 2018-11-25 | Outpatient (CLI) | payer OTHER ==
[~2018-11-25] MED LIST changes: +VITAMIN D35000 UNI1 PO
--- NOTE | ~2018-11-25 | PAINCON ---
[address] [address] PAIN MANAGEMENT CONSULTATION Name: DARIEN MENDEZ Room: [facility] Zimmer#: [id number] Admission: 11/25/18 Attend Phys: Nanette Gar MD Discharge: Date of : 60 Report #: [id number] THIS REPORT FOR: //name// CC: Martha Gar DATE OF SERVICE: 11/25/2018 CHIEF COMPLAINT: Here for an epidural injection. FOLLOWUP HISTORY: The patient is a 58-year-old gentleman who has been followed in the Pain Clinic for quite a number of years. 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 He has undergone injections in the L2-L3 areas in the past to help control the pain. Feels that this has been beneficial. In the past, he underwent ilioinguinal nerve blocks. After a couple of occasions, he noted some residual weakness after the nerve blocks. At this juncture, he feels that the epidural option is more favorable. He has had less problems. Notes an improvement in his pain. Has returned today with hopes of undergoing a successful epidural injection today. As you recall, he initially had pain. He had problems with hernia repair. This was done in the right groin area. He has developed scar tissue. ALLERGIES: PENICILLIN. CURRENT MEDICATIONS: Zanaflex 0.5 mg, Lipitor 40 mg, Restasis drops b.i.d., Neurontin 300 mg b.i.d., hydrocodone 10/325, indapamide 2.5 mg, lisinopril 20 mg, Timolol, Zanaflex 4 mg t.i.d., and Ambien 4 mg at bedtime. PAIN CLINIC ASSESSMENT AND PQRS: 1. Osteoarthritis. The patient has some osteoarthritic changes involving his knee. He is not being treated for rheumatoid arthritis. 2. Height 5 feet 10 inches, weight 203 pounds, BMI is 29. 3. Vital signs: Blood pressure 124/71, heart rate 92, respiratory rate 16, room air saturation 96%, temperature 97.9. 4. Pain intensity 11/02. 5. Fall history. The patient has not fallen in the last 3 months. 6. Blood thinner. The patient is not on a blood thinning medication. 7. Hypertension. The patient is being treated for hypertension. 8. Opioid greater than 6 weeks. The patient received medication from one source, the pain clinic. 9. Risk assessment tool. Low for opioid use. 10. Functional assessment tool. 11. Recreational drug use. The patient denies use of recreational drugs. 12. Tobacco: The patient denies use of tobacco. 13. Alcohol. The patient drinks [place] [address] PAIN MANAGEMENT CONSULTATION Name: DARIEN MENDEZ Room: [facility]#: [id number] Admission: 11/25/18 Attend Phys: Nanette Gar MD Discharge: Date of : 60 Report #: [id number] PHYSICAL EXAMINATION: GENERAL: The patient is a well-developed, well-nourished white male. Appears his stated age. He is alert and oriented x 3. His affect is appropriate. Speech is fluent. HEENT: Normocephalic, atraumatic. Extraocular eye muscles intact. Sclerae nonicteric. Mucous membranes are moist. NECK: Without adenopathy or JVD. LUNGS: Clear to auscultation without rhonchi or rales. HEART: Regular rate. S1, S2. ABDOMEN: Nontender. Bowel sounds present. MUSCULOSKELETAL: Without significant scoliosis, kyphosis or lordosis. The patient has upper extremity muscle strength 5/5 for the major muscle groups. Muscle strength to the lower extremity, 5-/5 on the left and 5/5 on the right. IMPRESSION: 1. Chronic ilioinguinal neuropathy, left side. 2. Hypertension. 3. Hyperlipidemia. 4. Hypercholesterolemia. 5. Chronic colon problems. 6. Stomach problems with joint disease. RECOMMENDATIONS: We discussed treatment options with the patient. Risks and benefits of an epidural steroid injection were discussed again. The patient has gleaned good relief with epidural injection at the L2-L3 interspace. He has returned today with a desire to undergo treatment. Risks and benefits of the procedure were discussed. They include but are not limited to infection, worsening pain, no improvement in pain, worsening of the discomfort with muscle discomfort. The patient elects to proceed. PROCEDURE NOTE: The patient was placed in the prone position. Fluoroscopy was used to identify the L2-L3 interspace. This area had been sterilely prepped with Betadine and infiltrated with 0.25% bupivacaine. Total of 80 mg Depo-Medrol, 40 mg triamcinolone and 2 mL of 0.25% bupivacaine was infiltrated at the L2-L3 area using a left paramedian approach. Aspiration was negative. The patient tolerated the procedure well. He remained in the pain clinic for an appropriate amount of time. Total of 6 seconds fluoroscopy time was used. The patient's pain decreased to 1 at the time of discharge. He will follow up in the future as needed. We would like to thank you for letting us participate in his care. We hope he continues to improve. By: [id number]. MD antwan Fulton
== END | disposition home or self-care (01) ==
LOC: M.PC 05:31
DX: G57.82 Other specified mononeuropathies of left lower limb (principal); G89.29 Other chronic pain; I10 Essential (primary) hypertension; E78.5 Hyperlipidemia, unspecified; E78.00 Pure hypercholesterolemia, unspecified; M19.90 Unspecified osteoarthritis, unspecified site; K63.9 Disease of intestine, unspecified; K31.9 Disease of stomach and duodenum, unspecified; Z79.899 Other long term (current) drug therapy; Z98.890 Other specified postprocedural states; Z88.0 Allergy status to penicillin; Z79.891 Long term (current) use of opiate analgesic

== ENCOUNTER → 2019-01-27 | Outpatient (CLI) | payer OTHER ==
[~2019-01-27] MED LIST changes: +FENOFIBRATE160 MG PO
--- NOTE | 2019-02-25 14:27 | PAINCON ---
[address] [address] PAIN MANAGEMENT CONSULTATION Name: DARIEN MENDEZ Room: [facility] Zimmer#: [id number] Admission: 01/27/19 Attend Phys: Nanette Gar MD Discharge: Date of : 60 Report #: [id number] THIS REPORT FOR: //name// CC: Martha Gar DATE OF SERVICE: 01/27/2019 CHIEF COMPLAINT: Pain in the low back with radiation down into the left groin area. HISTORY: The patient is a 58-year-old gentleman who has been followed in the pain clinic for a number of years because of chronic pain. He has had some pain in the ilioinguinal area as well as pain that radiates down into the left anterior portion of his leg. He has undergone lumbar epidural steroid injections and found them beneficial. He returns today indicating that his pain has increased again. He notes that the pain treatment course at this juncture provides a 50% improvement of his pain. He noted some increasing pain yesterday. Because of the severity of pain he was unable to stay at work. He went home, took some muscle relaxants and slept about 4 hours. Noticed some improvement in his pain. He has returned today with a hope of undergoing an injection, which has been beneficial in the past. He also has some problems with his right hand. States that he was at work, was reaching for the door, someone opened the door and it jammed his index finger. He has been experiencing pain and discomfort with this over the last 3 weeks. He is unable to touch his thumb to his index finger at this point. He has been quite busy at work. States that he had to walk about 10 miles. 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 He also has some problems with his thyroid. He was told that he has some areas of changes in his lung. He also has been told that his blood cholesterol levels have been problematic and has been given additional medication for that problem. Overall, he feels that things are changing pretty dynamically. This has been kind of tough for few weeks. He has returned today for an injection. ALLERGIES: PENICILLIN. CURRENT MEDICATIONS: Lipitor 40 mg, Restasis eye drops bilaterally, Neurontin 300 mg b.i.d., hydrocodone 10/325, indapamide 2.5 mg, lisinopril 20 mg, atenolol, Zanaflex 4 mg t.i.d., and Ambien 4 mg at bedtime. PAIN CLINIC ASSESSMENT AND PQRS: 1. The patient has some osteoarthritic changes involving his knee. He is not being treated for rheumatoid arthritis. 2. Height 5 feet 10 inches and weighs 205 pounds, [place] 29[place] [address] PAIN MANAGEMENT CONSULTATION Name: DARIEN MENDEZ Room: [facility] Zimmer#: [id number] Admission: 01/27/19 Attend Phys: Nanette Gar MD Discharge: Date of : 60 Report #: [id number] 3. Vital signs: Blood pressure 130/66, heart rate 83, respiratory rate 16, room air saturation 95%, temperature 98.0. 4. Pain intensity 8/10. 5. Fall history: The patient has not fallen in the last 3 months. 6. Blood thinner. The patient is not on a blood thinning medication. 7. Hypertension. The patient is being treated for hypertension. 8. Opiates greater than 6 weeks. The patient receives medication from the pain clinic. 9. Risk assessment tool, low for opioid use. 10. Functional assessment tool. 11. Recreational drug use. The patient denies use of recreational drugs. 12. Tobacco: The patient denies use of tobacco. 13. Alcohol. The patient drinks socially. PHYSICAL EXAMINATION: GENERAL: The patient is a well-developed, well-nourished white male. Appears his stated age. He is alert and oriented x 3. His affect is appropriate. Speech is fluent. HEENT: Normocephalic, atraumatic. Extraocular eye muscles intact. Sclerae nonicteric. Mucous membranes are moist. NECK: Without adenopathy or JVD. HEART: Regular rate. S1, S2. LUNGS: Clear to auscultation. ABDOMEN: Nontender. Bowel sounds present. MUSCULOSKELETAL: The patient without significant scoliosis, kyphosis, or lordosis. Upper extremity muscle strength is judged to be 5/5 for the major muscle groups. The patient has some soreness in the index finger on the right. He is unable to oppose it to his thumb and touch. Lower extremity muscles, the left inguinal/anterior thigh pain/radiculopathy. RECOMMENDATIONS: We discussed treatment options with the patient. Risks and benefits of an epidural steroid injection were again discussed. They include but are not limited to infection, worsening pain, no improvement in pain, nerve trauma, bleeding, spinal headache. The patient elects to proceed. PROCEDURE NOTE: The patient was taken to the procedure area. He was then assisted in getting on examination table. His back was sterilely prepped with a Betadine solution. A 0.25% bupivacaine at the L2-L3 interspace was performed. A 25-gauge needle using loss of resistance technique was then used to gain access to the epidural space. There was no CSF, heme or paresthesia. A total of 80 mg Depo-Medrol, 40 mg triamcinolone and 2 mL of 0.25% bupivacaine was injected. The patient tolerated the procedure well. There were no complications. The patient states he was going to return to work today. A script has been written for his medications. The patient is on a complicated medical management using hydrocodone 10/325 one p.o. q. 4 hours as well as tizanidine and gabapentin. These medications [place] [address] PAIN MANAGEMENT CONSULTATION Name: DARIEN MENDEZ Room: [facility]#: [id number] Admission: 01/27/19 Attend Phys: Nanette Gar MD Discharge: Date of : 60 Report #: [id number] will call us if he has any concerns. We would like to thank you for letting us participate in his care. We hope he continues to improve. <ELECTRONICALLY SIGNED> By: Nanette Gar MD 02/25/19 1427 [id number]. Braulio Gar MD /nt
== END | disposition home or self-care (01) ==
LOC: M.PC 05:10
DX: M54.16 Radiculopathy, lumbar region (principal); G89.29 Other chronic pain; E78.00 Pure hypercholesterolemia, unspecified; Z88.0 Allergy status to penicillin; Z79.891 Long term (current) use of opiate analgesic; Z79.899 Other long term (current) drug therapy; Z98.890 Other specified postprocedural states

== ENCOUNTER → 2019-03-26 | Outpatient (CLI) | payer OTHER ==
--- NOTE | 2019-04-01 16:51 | PAINCON ---
[address] [address] PAIN MANAGEMENT CONSULTATION Name: DARIEN MENDEZ Room: [facility] JAMMIETyrell Zimmer#: [id number] Admission: 03/26/19 Attend Phys: Nanette Gar MD Discharge: Date of : 60 Report #: [id number] THIS REPORT FOR: //name// CC: Martha Gar DATE OF SERVICE: 03/26/2019 PRIMARY CARE PHYSICIAN: Martha Mancuso D.O. CHIEF COMPLAINT: Low back pain. HISTORY: The patient is a 58-year-old gentleman who has been followed in the pain clinic because of chronic pain in the groin area. He has undergone epidural steroid injections and found them beneficial. He does have pain, which radiates in the L2-L3 area near the groin. Epidural steroid injections in the past have been quite beneficial. After the last injection, he did quite well. He has been working and this has entailed a significant increase in walking. 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 States that he has been walking with people on tours. He has walked 5-1/2 miles on some tours. Going up and down the stairs have increased his pain and discomfort. He has returned today for an epidural steroid injection with hopes that things would improve. He also has noted a small nodule in his thyroid. This is to be evaluated in the near future. He has returned and rates his pain today at 3-4/10. Overall, he noticed about a 70% improvement in his pain and this lasted for greater than 8 weeks after the last injection. Feels that tizanidine medication and hydrocodone are beneficial and would like to have those renewed as well. ALLERGIES: PENICILLIN. CURRENT MEDICATIONS: Alprazolam 0.5 mg, Lipitor 40 mg, vitamin D3 5000 units weekly, fenofibrate 60 mg, Neurontin 300 mg twice daily, hydrocodone 10/325, indapamide 2.5 mg, Zestril 20 mg, tizanidine 4 mg t.i.d., Ambien 10 mg at bedtime, and melatonin at bedtime. PAIN CLINIC ASSESSMENT/PQRS: 1. The patient has some osteoarthritic changes involving his knee. He is not being treated for rheumatoid arthritis. 2. Height 5 feet 10 inches, weight 220 pounds, BMI is 31. 3. VITAL SIGNS: Blood pressure 134/68, heart rate 95, respiratory rate 16, room air saturation 93%, temperature 98.3. 4. Pain intensity 3-4/10. 5. Fall history: The patient has not fallen in the last 3 months. 6. Blood thinner. The patient is not on a blood thinning medication. 7. Hypertension. The patient [place] [address] PAIN MANAGEMENT CONSULTATION Name: DARIEN MENDEZ Room: [facility]#: [id number] Admission: 03/26/19 Attend Phys: Nanette Gar MD Discharge: Date of : 60 Report #: [id number] 8. Opioids greater than 6 weeks. The patient receives medication [facility], the pain clinic. 9. Risk assessment tool, low for opioid use. 10. Functional assessment tool. 11. Recreational drug use. The patient denies use of recreational drugs. 12. Tobacco: The patient denies use of tobacco. 13. Alcohol: The patient denies use of alcoholic beverages except on a social occasion. PHYSICAL EXAMINATION: GENERAL: The patient is a well-developed, well-nourished white male. Appears his stated age. He is alert and oriented x 3. His affect is appropriate. Speech is fluent. HEENT: Normocephalic, atraumatic. Extraocular eye muscles intact. Sclerae nonicteric. Mucous membranes are moist. NECK: Without adenopathy or JVD. The patient states he could not feel a nodule in his neck. States that it is about the size of a jelly amaya. HEART: Regular rate. S1, S2. LUNGS: Clear to auscultation. ABDOMEN: Nontender. Bowel sounds present. MUSCULOSKELETAL: Without significant scoliosis, kyphosis or lordosis. Upper extremity muscle strength judged to be 5/5 for the major muscle groups in the upper extremity. The patient has pain in the left inguinal and anterior thigh area with radiculopathy in the L2-L3 dermatomal distribution. IMPRESSION: 1. Chronic ilioinguinal neuropathy, left side. 2. Hypertension. 3. Hyperlipidemia. 4. Hypercholesterolemia. 5. Chronic colon problems. 6. Stomach problems with joint disease. 7. Nodule found in the thyroid to be biopsied/evaluated in the near future. RECOMMENDATIONS: We discussed treatment options with the patient. Risks and benefits of an epidural steroid injection were discussed. They include but are not limited to infection, worsening of pain, no improvement in pain, nerve damage, spinal headache, bleeding, increased muscle soreness and the patient elects to proceed. PROCEDURE NOTE: The patient was taken to the procedure area. He was then assisted in getting on the examination table. His back was sterilely prepped with a Betadine solution. At the L2-L3 interspace 0.25% bupivacaine was infiltrated. A 17-gauge Tuohy with loss of resistance technique was used to gain access to the epidural space. There was no CSF, [place] [address] PAIN MANAGEMENT CONSULTATION Name: DARIEN MENDEZ Room: [facility]#: [id number] Admission: 03/26/19 Attend Phys: Nanette Gar MD Discharge: Date of : 60 Report #: [id number] Total of 80 mg Depo-Medrol, 40 mg triamcinolone and 2 mL of 0.25% bupivacaine was injected. The patient tolerated the procedure well. There were no complications. He remained in the pain clinic for an appropriate amount of time. He will follow up in the future as needed. A script for his medications have been rewritten. The patient will continue with hydrocodone 10/325 one p.o. q. 4-6 hours p.r.n., total of 100 tablets have been provided. The patient will also continue with gabapentin 100 mg 1 p.o. b.i.d. He states that he takes 2 tablets daily of 300 mg. Tizanidine 4 mg t.i.d. and [place] 10/325 as described above. We would like to thank you for letting us participate in his care. We hope he continues to improve. ADDENDUM PROCEDURE: The patient elected to undergo an epidural steroid injection at the L2-L3 interspace. He was then taken to the procedure area. He was then assisted in getting on the examination table. A pillow was placed under his abdomen to bolster and improve positioning. Fluoroscopy using anterior, posterior as well as lateral viewing were implemented. The patient's back was sterilely prepped with a Betadine solution. At the L2-L3 area, 0.25% bupivacaine was infiltrated using a 25-gauge needle. After it had been anesthetized, a 17-gauge Tuohy with loss of resistance technique was used to gain access to the epidural space. There was no CSF, heme or paresthesia. Total of 80 mg Depo-Medrol, 40 mg triamcinolone and 2 mL of 0.25% bupivacaine was injected. The patient tolerated the procedure well. He remained in the pain clinic for an appropriate amount of time. He will follow up in the future as needed. <ELECTRONICALLY SIGNED> By: Nanette Gar MD 04/01/19 [id number]. Braulio Gar MD /[facility]
== END | disposition home or self-care (01) ==
LOC: M.PC 05:14
DX: G57.82 Other specified mononeuropathies of left lower limb (principal); G89.29 Other chronic pain; M54.5 Low back pain; I10 Essential (primary) hypertension; E78.00 Pure hypercholesterolemia, unspecified; E78.5 Hyperlipidemia, unspecified; K63.89 Other specified diseases of intestine; M19.90 Unspecified osteoarthritis, unspecified site; K31.9 Disease of stomach and duodenum, unspecified; Z98.890 Other specified postprocedural states; Z79.899 Other long term (current) drug therapy; Z79.891 Long term (current) use of opiate analgesic; Z88.0 Allergy status to penicillin

== ENCOUNTER → 2019-05-21 | Outpatient (CLI) | payer OTHER ==
--- NOTE | ~2019-05-21 | PAINCON ---
[address] [address] PAIN MANAGEMENT CONSULTATION Name: DARIEN MENDEZ Room: [facility] JAMMIE Mesha#: [id number] Admission: 05/21/19 Attend Phys: Nanette Gar MD Discharge: Date of : 60 Report #: [id number] THIS REPORT FOR: //name// CC: Martha Morel DATE OF SERVICE: 05/21/2019 CHIEF COMPLAINT: Here for an epidural injection. HISTORY: The patient is a 58-year-old gentleman who has been followed in the Pain Clinic because of chronic lumbar radicular pain in the L2-L3 area. Epidural steroid injections have been quite beneficial. He has returned today for another injection. He has had no complication from their use in the past. Continues to have pain in the groin area, which is quite problematic. Notes that movement and activity increases discomfort. 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 With the movement of the office, comes lifting and pulling, dragging and moving furniture. This in and out activity has exacerbated his discomfort. He feels that his pain has increased and has returned today for an epidural steroid injection, which provided greater than 50% improvement in his pain. ALLERGIES: PENICILLIN. CURRENT MEDICATIONS: Alprazolam 0.5 mg, Lipitor 40 mg, vitamin D3 5000 units, weekly, fenofibrate 60 mg, Neurontin 300 mg b.i.d., hydrocodone 10/325, indapamide 2.5 mg, Zestril 20 mg, tizanidine 4 mg t.i.d., Ambien 10 mg at bedtime, and melatonin at bedtime. PAIN CLINIC ASSESSMENT/PQRS: 1. The patient has some osteoarthritic changes involving his knee. He is not being treated for rheumatoid arthritis. 2. Height 5 feet 10 inches, weight 228 pounds, BMI is 32. 3. Vital Signs: Blood pressure 136/96, heart rate 102, respiratory rate 16, room air saturation 93%, temperature 98.3. 4. Pain intensity is a 4-5/10. 5. Fall history: The patient has not fallen in the last 3 months. 6. Blood thinner. The patient is not on a blood thinning medication. 7. Hypertension. The patient is being treated for hypertension. 8. Opioids greater than 6 weeks. The patient [facility]. 9. Risk assessment tool, low for opioid use. 10. Functional assessment tool. 11. Recreational drug use. The patient denies. 12. Tobacco: [place] [address] PAIN MANAGEMENT CONSULTATION Name: DARIEN MENDEZ [facility] [id number] Admission: 05/21/19 Attend Phys: Nanette Gar MD Discharge: Date of : 60 Report #: [id number] 13. Alcohol. The patient denies use of alcoholic beverages except on social occasion. PHYSICAL EXAMINATION: GENERAL: The patient is a well-developed, well-nourished white male. Appears his stated age. He is alert and oriented x 3. His affect is appropriate. Speech is fluent. HEENT: Normocephalic, atraumatic. Extraocular eye muscles intact. Sclerae nonicteric. Mucous membranes are moist. NECK: Without adenopathy or JVD. HEART: Regular rate. S1, S2. LUNGS: Clear to auscultation. ABDOMEN: Nontender. Bowel sounds present. MUSCULOSKELETAL: Without significant scoliosis, kyphosis or lordosis. Upper extremity muscle strength judged to be 5/5 for the major muscle groups in the upper extremity. Lower extremity muscle strength judged to be 5/5 for the major muscle groups in the lower extremity. The patient has pain and discomfort in the L2-L3 dermatomal distribution of his leg on the left side. IMPRESSION: 1. Chronic ilioinguinal neuropathy, left side. 2. Hypertension. 3. Hyperlipidemia. 4. Hypercholesterolemia. 5. Chronic colon pain. 6. Stomach problems with joint disease. 7. Nodule found in the thyroid to be biopsied and evaluated in the near future. RECOMMENDATIONS: We discussed treatment options with the patient. Risks and benefits of an epidural steroid injection were again reviewed. They include but are not limited to infection, worsening pain, no improvement in pain, and increased nerve irritation. The patient elects to proceed. PROCEDURE NOTE: The patient was taken to the procedure area. He was then assisted in getting on the examination table. His back was sterilely prepped with a Betadine solution. Fluoroscopy using anterior, posterior as well as lateral viewing were implemented. A pillow was placed under his abdomen to bolster and improve positioning. A Betadine prep was used to sterilize the area on his back. A 0.25% bupivacaine was infiltrated using a 25-gauge needle at the L2-L3 interspace. A 17-gauge Tuohy at the L2-L3 interspace was then used. A midline approach was undertaken. Aspiration was negative. A total of 80 mg Depo-Medrol, 40 mg triamcinolone and 2 mL of 0.25% bupivacaine was then undertaken. There were no complications. A total of 8 seconds fluoroscopy time was used. The patient will follow up in the future as needed. [address] [address] PAIN MANAGEMENT CONSULTATION Name: DARIEN MENDEZ Room: [facility] Zimmer#: [id number] Admission: 05/21/19 Attend Phys: Nanette Gar MD Discharge: Date of : 60 Report #: [id number] We would like to thank you for letting us participate in his care. We hope he continues to improve. By: [id number]. Braulio Gar MD /nt
== END | disposition home or self-care (01) ==
LOC: M.PC 04:50
DX: M54.16 Radiculopathy, lumbar region (principal); G89.29 Other chronic pain; M17.10 Unilateral primary osteoarthritis, unspecified knee; I10 Essential (primary) hypertension; G62.9 Polyneuropathy, unspecified; E78.5 Hyperlipidemia, unspecified; E78.00 Pure hypercholesterolemia, unspecified; Z88.0 Allergy status to penicillin; Z79.899 Other long term (current) drug therapy

== ENCOUNTER → 2019-07-16 | Outpatient (CLI) | payer OTHER ==
--- NOTE | ~2019-07-16 | PAINCON ---
[address] [address] PAIN MANAGEMENT CONSULTATION Name: DARIEN MENDEZ Room: [facility] Mesha#: [id number] Admission: 07/16/19 Attend Phys: Nanette Gar MD Discharge: Date of : 60 Report #: [id number] THIS REPORT FOR: //name// CC: Martha Morel DATE OF SERVICE: 07/16/2019 CHIEF COMPLAINT: The injections have been helpful and I have returned for another epidural injection. HISTORY OF PRESENT ILLNESS: The patient is a 58-year-old gentleman who has been followed in the pain clinic. As you may recall, he has a history of lumbar radicular pain. His pain often times involves the L2-L3 area. This has been ongoing for a number of years. Epidural steroid injections have been beneficial. At this juncture, he has noticed a different pain. It involves his lower back with pain radiating down the right buttocks in the posterior portion of his leg. This is different than the pain in the upper back area. He has returned today with the hopes of undergoing an epidural injection to help quell this pain and discomfort. He describes it as a 7/10. Pain can be so problematic when he takes his first step, sometimes he is almost required to hold on to something. He has not had any problems with previous injections. Rates his pain today as about 70% improved with medications and with epidural steroid injections. He has noted some increased stress in his life. Feels that he is having some problems with his hearing. This involves his right ear. He would like to proceed with an epidural steroid injection in the lower portion to help with pain in the lower portion of his back. ALLERGIES: PENICILLIN. CURRENT MEDICATIONS: Alprazolam 0.5 mg, Lipitor 40 mg, vitamin D 5000 units, fenofibrate ____ mg, Neurontin 300 mg b.i.d., hydrocodone 10/325, indapamide 2.5 mg, Zestril 20 mg, tizanidine 4 mg t.i.d., and Ambien 10 mg at bedtime, and melatonin at bedtime. PAIN CLINIC ASSESSMENT AND PQRS: 1. The patient has some osteoarthritic changes involving his knee. He is not being treated for rheumatoid arthritis. 2. Height 5 feet 10 inches, weight 228 pounds, BMI is 32.9. 3. Vital signs: Blood pressure 132/66, heart rate 93, respiratory rate 16, room air saturation 96%, and temperature 98.2. 4. Pain intensity is 7/10. 5. Fall history: The patient has not fallen in the last 3 months. 6. Blood thinner: The patient is not on a blood thinning medication. 7. Hypertension: The patient is [place] [address] PAIN MANAGEMENT CONSULTATION Name: DARIEN MENDEZ Room: [facility]#: [id number] Admission: 07/16/19 Attend Phys: Nanette Gar MD Discharge: Date of : 60 Report #: [id number] 8. Opioids greater than 6 weeks: The patient receives medication from [facility], the pain clinic. 9. Risk assessment tool: Low for opioid use. 10. Functional assessment tool. 11. Recreational drug use: The patient denies. 12. Tobacco: The patient denies. 13. Alcohol. The patient denies use of alcoholic beverages except on social occasions. PHYSICAL EXAMINATION: GENERAL: The patient is a well-developed, well-nourished white male. Appears his stated age. He is alert and oriented x 3. His affect is appropriate. His speech is fluent. HEENT: Normocephalic, atraumatic. Extraocular eye muscles intact. The patient is having some hearing issues. HEART: Regular rate. S1, S2. NECK: Without adenopathy or JVD. LUNGS: Clear to auscultation. ABDOMEN: Nontender. Bowel sounds present. MUSCULOSKELETAL: The patient is without significant scoliosis, kyphosis, or lordosis. Upper extremity muscle strength judged to be 5/5 for the major muscle groups in the upper extremity. Lower extremity muscle strength is 5/5. The patient still has some pain and discomfort in the L2-L3 dermatomal distribution involving the left side of his leg, but the pain is more problematic in the lower portion of his back in the right with radiation down into the posterior portion of his leg. IMPRESSION: 1. Chronic ilioinguinal neuropathy, left side. 2. Pain in the L5-S1 dermatomal distribution on the right leg. 3. Hypertension. 4. Hyperlipidemia. 5. Hypercholesterolemia. 6. Chronic colon pain. 7. Stomach problems with joint disease. 8. Nodule found in the thyroid, to be biopsied and evaluated in the future. RECOMMENDATIONS: We discussed treatment options with the patient. Risks and benefits of an epidural steroid injection were discussed. They include but are not limited to infection, worsening of pain, no improvement in pain, nerve damage, bleeding, and no improvement in pain. The patient elects to proceed. PROCEDURE NOTE: The patient was taken to the procedure area. He was then assisted in getting on the examination table. His back was sterilely prepped with a Betadine solution. Fluoroscopy using the anterior and posterior as well as lateral viewing was implemented. The patient[place] [address] PAIN MANAGEMENT CONSULTATION Name: DARIEN MENDEZ Room: [facility]#: [id number] Admission: 07/16/19 Attend Phys: Nanette Gar MD Discharge: Date of : 60 Report #: [id number] prepped. A 0.25% bupivacaine was injected in the midline area with 0.25% bupivacaine to anesthetize the area. A 17-gauge Tuohy with loss of resistance technique was used to gain access to the epidural space. Aspiration was negative. There was no CSF, heme, or paresthesia. A total of 80 mg Depo-Medrol, 40 mg triamcinolone, and 2 mL of 0.25% bupivacaine were injected. Total of 7 seconds were used. The patient remained in the pain clinic for an appropriate amount of time. He will follow up in the future as needed. We would like to thank you for letting us participate in his care. We hope he continues to improve. By: [id number]. Braulio Gar MD /nt
== END | disposition home or self-care (01) ==
LOC: M.PC 05:05
DX: M54.16 Radiculopathy, lumbar region (principal); G89.29 Other chronic pain; I10 Essential (primary) hypertension; E78.5 Hyperlipidemia, unspecified; E78.00 Pure hypercholesterolemia, unspecified; M19.90 Unspecified osteoarthritis, unspecified site; G57.82 Other specified mononeuropathies of left lower limb; Z98.890 Other specified postprocedural states; Z79.899 Other long term (current) drug therapy; Z88.0 Allergy status to penicillin; Z79.891 Long term (current) use of opiate analgesic

== ENCOUNTER → 2019-09-08 | Outpatient (CLI) | payer OTHER ==
--- NOTE | ~2019-09-08 | PAINCON ---
[address] [address] PAIN MANAGEMENT CONSULTATION Name: DARIEN MENDEZ Room: [facility] JAMMIETyrell Zimmer#: [id number] Admission: 09/08/19 Attend Phys: Nanette Gar MD Discharge: Date of : 60 Report #: [id number] THIS REPORT FOR: //name// CC: Martha Gar DATE OF SERVICE: 09/08/2019 PRIMARY CARE PHYSICIAN: Martha Mancuso DO CHIEF COMPLAINT: Return of pain down into the low back and left groin area. HISTORY: The patient is a 58-year-old gentleman who has been followed in the pain clinic because of chronic lumbar radicular pain. He has two components of pain. He has pain in the lumbar area, which is radiating down into the lower extremity. He also has pain that radiates in the L2-L3 dermatomal distribution into his left leg. At this point, he would like to proceed with an injection in the lumbar area for the pain in the groin and anterior leg area. He underwent an injection for the right sciatic pain in the last visit. He noticed that the pain improved after that injection. He has had no complications with the procedure. He is contemplating going to [place]. His mother lives there. She has Alzheimer's. He is also going to visit a friend. His friend has found out that he has pancreatic cancer and is doing poorly. He would like to proceed with an epidural injection today to help his pain. Overall, he feels that things are about 50% improved with the past treatment course. ALLERGIES: PENICILLIN. CURRENT MEDICATIONS: Alprazolam 0.5 mg, Lipitor 40 mg, vitamin D 5000 units, fenofibrate, Neurontin 300 mg b.i.d., hydrocodone 10/325, indapamide 2.5 mg, Zestril 20 mg, tizanidine 4 mg t.i.d., Ambien 10 mg at bedtime, and melatonin at bedtime. PAIN CLINIC ASSESSMENT AND PQRS: 1. The patient has some osteoarthritic changes involving his knee. He is not being treated for rheumatoid arthritis. 2. Height 5 feet 10 inches, weight 234 pounds, BMI is 33. 3. Vital signs: Blood pressure is 136/68, heart rate 89, respiratory rate 16, room air saturation 92%, temperature 97.9. 4. Pain intensity 4/10. 5. Fall history: The patient has not fallen in the last 3 months. 6. Blood thinner. The patient is not on a blood thinning medication. 7. Hypertension. The patient is being treated for hypertension. 8. Opioids greater than 6 weeks. The patient receives medication from [facility], the pain clinic. 9. Risk assessment tool, low [place] [address] PAIN MANAGEMENT CONSULTATION Name: DARIEN MENDEZ Room: [facility]#: [id number] Admission: 09/08/19 Attend Phys: Nanette Gar MD Discharge: Date of : 60 Report #: [id number] 10. Functional assessment tool reviewed. 11. Recreational drug use: The patient denies. 12. Tobacco: The patient denies. 13. Alcohol. The patient denies alcohol use except on rare occasion. PHYSICAL EXAMINATION: GENERAL: The patient is a well-developed, well-nourished white male. Appears his stated age. He is alert and oriented x 3. His affect is appropriate. Speech is fluent. HEENT: Normocephalic, atraumatic. Extraocular eye muscles intact. Sclerae nonicteric. Mucous membranes are moist. NECK: Without adenopathy or JVD. LUNGS: Clear to auscultation. ABDOMEN: Nontender. Bowel sounds present. MUSCULOSKELETAL: Upper extremity muscle strength judged to be 5/5 for the major muscle groups in the upper extremity. The patient without significant scoliosis, kyphosis or lordosis. The patient has pain and discomfort in the L2-L3 dermatomal distribution with pain that is radiating down into his anterior thigh and left groin area. IMPRESSION: 1. Chronic ilioinguinal neuropathy, left side. 2. Pain improves ____ in L5-S1 dermatomal distribution on the right with improvement of sciatica. 3. Hypertension. 4. Hyperlipidemia. 5. Hypercholesterolemia. 6. Chronic colon pain. 7. Stomach problems with joint disease. 8. Nodule found in the thyroid area to be biopsied. RECOMMENDATIONS: We discussed treatment options with the patient. Risks and benefits of an epidural steroid injection were discussed. Possibility of trauma, bleeding, nerve damage, and spinal headache were all reviewed. The patient elects to proceed. We will proceed with an epidural steroid injection at the L2-L3 dermatomal distribution. This has been helpful in decreasing the pain and discomfort he has experienced in the anterior portion of his left leg. PROCEDURE NOTE: The patient was taken to the procedure area. He was then assisted in getting on the examination table. His back was sterilely prepped with a Betadine solution. A 0.25% bupivacaine was infiltrated. A pillow was placed under his abdomen to bolster and improve positioning. Fluoroscopy using anterior, posterior as well as lateral viewing were implemented. His back was sterilely prepped at the L2-L3 interspace. A 25-gauge needle was then used to anesthetize the area using 0.25% bupivacaine. A 17-gauge Tuohy with loss of resistance technique was used to gain access to the epidural [place] [address] PAIN MANAGEMENT CONSULTATION Name: DARIEN MENDEZ Room: [facility].#: [id number] Admission: 09/08/19 Attend Phys: Nanette Gar MD Discharge: Date of : 60 Report #: [id number] no CSF, heme or paresthesia. A total of 80 mg Depo-Medrol, 40 mg triamcinolone and 2 mL of 0.25% bupivacaine was injected. The patient tolerated the procedure well. There were no complications. He remained in the pain clinic for an appropriate amount of time. He will follow up in the future as needed. A total of 10 seconds fluoroscopy time was used. The patient's pain decreased to 2 at the time of discharge. He will call us if he has any concerns. Hopefully, he will be able to make the trip to see his mother as well as his friend, who is dying of cancer with less pain and discomfort during his ____ there. By: [id number]. Braulio Gar MD /[facility]
== END | disposition home or self-care (01) ==
LOC: M.PC 10:21
DX: M54.16 Radiculopathy, lumbar region (principal); G89.29 Other chronic pain; I10 Essential (primary) hypertension; E78.00 Pure hypercholesterolemia, unspecified; E78.5 Hyperlipidemia, unspecified; Z98.890 Other specified postprocedural states; Z79.899 Other long term (current) drug therapy; Z87.19 Personal history of other diseases of the digestive system; Z88.0 Allergy status to penicillin; Z79.891 Long term (current) use of opiate analgesic

== ENCOUNTER → 2019-11-03 | Outpatient (CLI) | payer OTHER ==
--- NOTE | 2019-11-20 09:00 | PAINCON ---
[address] [address] PAIN MANAGEMENT CONSULTATION Name: DARIEN MENDEZ Room: [facility] Cresencio.#: [id number] Admission: 11/03/19 Attend Phys: Nanette Gar MD Discharge: Date of : 60 Report #: [id number] THIS REPORT FOR: //name// cc: Martha Mancuso Christina DO ~ THIS REPORT FOR: //name// CC: Marhta Morel DATE OF SERVICE: 11/03/2019 CHIEF COMPLAINT: Recurrence of low back pain. HISTORY: The patient is a 59-year-old gentleman who has been followed in the pain clinic because of chronic pain in the groin and anterior thigh area. He has undergone epidural steroid injections for pain over the last few years. He does find an improvement in his pain and discomfort. He has returned today indicating that the pain has become more problematic. He rates it as a 6/10 today. He has used some Lidoderm patches. He has returned today with hopes of undergoing another epidural injection to help with the pain and discomfort that is problematic in the anterior portion of his leg. It is most problematic on the left side. Notes that his pain is improved by 50% with oral medications. Notes that walking, sitting, standing, climbing stairs, bending and lifting can exacerbate his discomfort. States that he tore his gluteus muscle. He has noted some cramping as a result of that discomfort. ALLERGIES: PENICILLIN. CURRENT MEDICATIONS: Alprazolam 0.5 mg, Lipitor 40 mg, vitamin D 5000 units, fenofibrate, Neurontin 300 mg b.i.d., hydrocodone 10/325, indapamide 2.5 mg, Zestril 20 mg, tizanidine 4 mg t.i.d., Ambien 10 mg at bedtime, and melatonin at bedtime. PAIN CLINIC ASSESSMENT/PQRS: 1. The patient does have some osteoarthritic changes involving his knee. He is not being treated for rheumatoid arthritis. 2. Height 5 feet 10 inch, weight 228 pounds, BMI is 32.7. 3. Vital signs: Blood pressure 102/66, heart rate 81, respiratory rate 16, room air saturation 97%. Pain intensity is 6-7/10. 4. Fall history: The patient has not fallen in the last 3 months. 5. Blood thinner. The patient is not on a blood thinning medication. 6. Opioids greater than 6 weeks. The patient received medication from one source the pain clinic. 7. Risk assessment tool, [place] [address] PAIN MANAGEMENT CONSULTATION Name: DARIEN MENDEZ Room: [facility] Mesha#: [id number] Admission: 11/03/19 Attend Phys: Nanette Gar MD Discharge: Date of : 60 Report #: [id number] 8. Functional assessment tool. 9. Recreational drug use: The patient denies use of recreational drugs. 10. Tobacco: The patient denies use of tobacco. 10. Alcohol. The patient denies use of alcohol except on rare occasion. PHYSICAL EXAMINATION: GENERAL: The patient is a well-developed, well-nourished white male. Appears his stated age. He is alert and oriented x 3. His affect is appropriate. Speech is fluent. HEENT: Normocephalic, atraumatic. Extraocular eye muscles intact. Sclerae nonicteric. Mucous membranes are moist. NECK: Without adenopathy or JVD. LUNGS: Clear to auscultation. ABDOMEN: Nontender. Bowel sounds present. MUSCULOSKELETAL: Judged to be 5/5 for the major muscle groups in the upper extremity. The patient without significant scoliosis, kyphosis or lordosis. The patient has pain and discomfort in the L2-L3 dermatomal distribution with pain radiating to the anterior portion of his left thigh and groin area. Also, has some pain and discomfort in the buttocks near the gluteus waylon. IMPRESSION: 1. Ilioinguinal neuropathy, left side L2-L3 area. 2. Torn gluteus muscle on the right buttocks. 3. History of L5-S1 dermatomal distribution with sciatica on the right. 4. Hypertension. 5. Hyperlipidemia. 6. Hypercholesterolemia. 7. Chronic colon pain. 8. Stomach problems with joint disease. 9. Nodule found in the thyroid area be biopsied. RECOMMENDATIONS: We discussed treatment options with the patient. Risks and benefits of an epidural steroid injection were discussed. Possible complications of the procedure were reviewed. They include but are not limited to infection, worsening pain, no improvement in pain, nerve damage, spinal headache and the patient elects to proceed. PROCEDURE NOTE: The patient was taken to the procedure area. He was then assisted in getting on the examination table. His back was sterilely prepped with a Betadine solution. A 0.25% bupivacaine was infiltrated. A 17-gauge Tuohy with loss of resistance technique was used to gain access to the epidural space. There was no CSF, heme or paresthesia. Total of 80 mg Depo-Medrol, 40 mg triamcinolone and 2 mL of 0.25% bupivacaine was injected at the L2-L3 interspace. This area had been evaluated and localized using fluoroscopy using anterior as well as lateral viewing plate. Aspiration was negative after the 17-gauge Tuohy was advanced at the L2-L3 interspace. A total of [address] [facility] [address] [place] [address] PAIN MANAGEMENT CONSULTATION Name: DARIEN MENDEZ Room: [facility]#: [id number] Admission: 11/03/19 Attend Phys: Nanette Gar MD Discharge: Date of : 60 Report #: [id number] Depo-Medrol, 40 mg triamcinolone and 2 mL of 0.25% bupivacaine was injected. The patient tolerated the procedure well. There were no complications. He remained in the pain clinic for an appropriate amount of time. The patient will continue with hydrocodone 10/325 one p.o. 4-6 hours away. A script for 2 months of medication has been provided. The patient will also continue with gabapentin 300 mg 1 p.o. t.i.d. He will use Zanaflex for the muscles spasms 4 mg 1 p.o. t.i.d. are available. We would like to thank you for letting us participate in his care. We hope he continues to improve. <ELECTRONICALLY SIGNED> By: Nanette Gar MD 11/20/19 0900 1602 [id number]. Braulio Gar MD /nt
== END | disposition home or self-care (01) ==
LOC: M.PC 04:40
DX: M54.5 Low back pain (principal); M54.16 Radiculopathy, lumbar region; G89.29 Other chronic pain; I10 Essential (primary) hypertension; E78.5 Hyperlipidemia, unspecified; E78.00 Pure hypercholesterolemia, unspecified; K63.9 Disease of intestine, unspecified; Z98.890 Other specified postprocedural states; Z79.899 Other long term (current) drug therapy; Z87.891 Personal history of nicotine dependence; Z88.0 Allergy status to penicillin

== ENCOUNTER → 2019-12-29 | Outpatient (CLI) | payer OTHER ==
--- NOTE | 2019-12-30 08:03 | PAINCON ---
[address] [address] PAIN MANAGEMENT CONSULTATION Name: DARIEN MENDEZ Room: [facility] DiazJd#: [id number] Admission: 12/29/19 Attend Phys: Nanette Gar MD Discharge: Date of : 60 Report #: [id number] THIS REPORT FOR: //name// cc: Martha Mancuso Christina DO ~ THIS REPORT FOR: //name// CC: Martha Gar DATE OF SERVICE: 12/29/2019 CHIEF COMPLAINT: Pain in the leg is going down the right side. HISTORY: The patient is a 59-year-old gentleman who has been followed in the pain clinic because of history of pains. He has 2 pains. The first pain is the ilioinguinal pain. Pain on the left side. Epidural steroid injections have been beneficial for that. He now has a second pain, which involves his right lower leg. It radiates down into the sciatic nerve. He has been busy. He has been cutting trees. He has been doing yard work. This has increased his pain and discomfort. He rates his pain as 8 today. He has been working hard to decrease his weight. He has lost about 23 pounds. He has been trying to improve his LDL and HDL numbers. Pain was quite problematic about a week ago. He went and saw a physician. He underwent Toradol injection, that provided some benefit. He has ran out of his meloxicam. He continues to use the hydrocodone and gabapentin, and a muscle relaxant, tizanidine. He would like to have these medications renewed. Pain is worse when he is walking, sitting, standing, lifting and bending. He continues to work at home because of the COVID-19 pandemic. ALLERGIES: PENICILLIN. CURRENT MEDICATIONS: Alprazolam 0.5 mg, Lipitor 40 mg, vitamin D 5000 units, fenofibrate, Neurontin 300 mg b.i.d., hydrocodone 10/325, indapamide 2.5 mg, Zestril 20 mg, tizanidine 4 mg t.i.d., Ambien 10 mg at bedtime, melatonin at bedtime, hydrocodone 10/325 q. 4 hours p.r.n. and meloxicam 15 mg daily. PAIN CLINIC ASSESSMENT AND PQRS: 1. The patient does have some osteoarthritic changes in his knee. He is not being treated for rheumatoid arthritis. 2. Height 5 feet 10 inch, weight 207 pounds, BMI is 29.8. 3. Blood pressure 92/49, heart rate 83, respiratory rate 16, room air saturation 97%. 4. Pain intensity 8/10. 5. Fall history: The patient has not fallen in the last 3 months. 6. Blood thinner. The patient is not [place] [address] PAIN MANAGEMENT CONSULTATION Name: DARIEN MENDEZ [id number] Admission: 12/29/19 Attend Phys: Nanette Gar MD Discharge: Date of : 60 Report #: [id number] 7. The patient is treated for hypertension. 8. Opioids greater than 6 weeks. The patient receives medication from the pain clinic. 9. Risk assessment tool, low for opioid use. 10. Functional assessment tool reviewed. 11. Recreational drug use. The patient denies. 12. Tobacco: The patient denies. 13. Alcohol. The patient occasionally drinks alcoholic beverages. PHYSICAL EXAMINATION: GENERAL: The patient is a well-developed, well-nourished white male. Appears his stated age. He is alert and oriented x 3. His affect is appropriate. Speech is fluent. HEENT: Normocephalic, atraumatic. Extraocular eye muscles intact. Sclerae nonicteric. Mucous membranes are moist. NECK: Without adenopathy or JVD. The patient is wearing a mask. LUNGS: Clear to auscultation. ABDOMEN: Nontender. Bowel sounds present. EXTREMITIES: Upper extremity muscle strength judged to be 5/5 for the major muscle groups in the upper extremity. The patient is without significant scoliosis, kyphosis or lordosis. The patient is complaining of pain and discomfort in the L5-S1 dermatomal distribution on the right with pain in the "sciatic nerve area." IMPRESSION: 1. Exacerbation of sciatic nerve pain on the right. 2. History of ilioinguinal neuropathy, left side, stable at this juncture. 3. Torn gluteus muscle on the right buttocks. 4. Hypertension. 5. Hyperlipidemia. 6. Hypercholesterolemia. 7. Chronic colon pain. 8. Stomach problems and joint disease. 9. Nodule found in the thyroid to be biopsied. RECOMMENDATIONS: We discussed treatment options with the patient. At this juncture, he feels that the pain has become more problematic. Risks and benefits of an epidural steroid injection in the lumbar area to help with the sciatic nerve pain has been discussed. The possibility of infection, worsening of pain, no improvement in pain, nerve damage, bleeding, and the problems with the COVID-19 have been discussed. The patient elects to proceed. PROCEDURE NOTE: The patient was taken to the procedure area. He was then assisted in getting on the examination table. His back was sterilely prepped with a Betadine solution. A 0.25% bupivacaine was infiltrated at the L5-S1 area on the right. Fluoroscopy using anterior, posterior [place] [address] PAIN MANAGEMENT CONSULTATION Name: DARIEN MENDEZ Room: [facility]#: [id number] Admission: 12/29/19 Attend Phys: Nanette Gar MD Discharge: Date of : 60 Report #: [id number] were implemented. A total of 80 mg Depo-Medrol, 40 mg triamcinolone and 2 mL of 0.25% bupivacaine was injected. The patient tolerated the procedure well. He remained in the pain clinic for an appropriate amount of time. A script for the patient's medications of hydrocodone 10/325 have been provided. A script for meloxicam 15 mg daily has also been provided. The patient will call us if he has any concerns. We would like to thank you for letting us participate in his care. We hope he continues to improve. <ELECTRONICALLY SIGNED> By: Nanette Gar MD 12/30/19 0803 1043 2002NVanessa Gar MD /nt
== END | disposition home or self-care (01) ==
LOC: M.PC 03:01
DX: M54.31 Sciatica, right side (principal); M79.604 Pain in right leg; I10 Essential (primary) hypertension; E78.00 Pure hypercholesterolemia, unspecified; E78.5 Hyperlipidemia, unspecified; Z98.890 Other specified postprocedural states; Z86.69 Personal history of other diseases of the nervous system and sense organs; Z88.0 Allergy status to penicillin; Z79.899 Other long term (current) drug therapy

== ENCOUNTER → 2020-02-23 | Outpatient (CLI) | payer OTHER ==
[~2020-02-23] MED LIST changes: +LO-DOSE ASPIRIN81 M1 PO
--- NOTE | 2020-03-03 15:40 | PAINCON ---
[address] [address] PAIN MANAGEMENT CONSULTATION Name: DARIEN MENDEZ Room: [facility] DiazAntolin.#: [id number] Admission: 02/23/20 Attend Phys: Nanette Gar MD Discharge: Date of : 60 Report #: [id number] THIS REPORT FOR: //name// cc: Martha Mancuso Christina DO ~ THIS REPORT FOR: //name// CC: Martha Gar DATE OF SERVICE: 02/23/2020 CHIEF COMPLAINT: Pain in the low back and right side going down to the leg. HISTORY: The patient is a 59-year-old gentleman who has been followed in the pain clinic. As you may recall, he has history of pain in the low back area with pain in the area of the ilioinguinal nerve. This involves the left side. Epidural steroid injections have been helpful. He is having a recurrence of the pain and discomfort. He would like to proceed with another epidural steroid injection. These have been quite beneficial in the past. Pain is worse when he is walking, decreases when he is relaxing. He notes that sitting, standing, walking activity, lifting and bending can exacerbate his discomfort. He has returned today for his medications and would like to undergo an epidural injection in the near future to help quell the pain and discomfort. He has also had pain in the lumbar area in the past, which has been helped by epidural steroid injections in the lower lumbar area. ALLERGIES: PENICILLIN. CURRENT MEDICATIONS: Alprazolam 0.5 mg, Lipitor 40 mg, vitamin D 5000 units, fenofibrate, Neurontin 300 mg b.i.d., indapamide 2.5 mg, Zestril 20 mg, tizanidine 4 mg t.i.d., Ambien 10 mg at bedtime, melatonin, hydrocodone 10/325 one p.o. every 4 hours p.r.n., and meloxicam 15 mg daily. PAIN CLINIC ASSESSMENT AND PQRS: 1. The patient has some osteoarthritic changes in his knee. He is not being treated for rheumatoid arthritis. 2. Height 5 feet 10 inch, weight 207 pounds, BMI is 29.7. 3. Vital Signs: Blood pressure 93/53, heart rate 87, respiratory rate 16, room air saturation is 96%, temperature 97.3. Pain score 1/10. 4. Fall history: The patient has not fallen in the last 3 months. 5. Blood thinner. The patient is not on a blood thinning medication. 6. The patient is being treated for hypertension. 7. Opioids. The patient receives medication from the pain clinic. 8. Risk assessment tool, moderate or low for opioid use. 9. Functional [place] [address] PAIN MANAGEMENT CONSULTATION Name: DARIEN MENDEZ Room: [facility]#: [id number] Admission: 02/23/20 Attend Phys: Nanette Gar MD Discharge: Date of : 60 Report #: [id number] 10. Recreational drug use. The patient denies. 11. Tobacco: The patient denies. 12. Alcohol: The patient occasionally drinks alcoholic beverages. PHYSICAL EXAMINATION: GENERAL: The patient is a well-developed, well-nourished white male. He appears his stated age. He is alert and oriented x 3. His affect is appropriate. Speech is fluent. HEENT: Normocephalic, atraumatic. Extraocular eye muscles intact. Sclerae nonicteric. Mucous membranes are moist. NECK: Without adenopathy or JVD. HEART: Regular rate. CHEST: Clear to auscultation. EXTREMITIES: Upper extremity muscle strength judged to be 5/5 for the major muscle groups in the upper extremity. The patient is without significant scoliosis, kyphosis or lordosis. The patient has pain radiating down into the L5-S1 area and has pain in the area of the ilioinguinal nerve. IMPRESSION: 1. History of nerve root irritation with L5-S1 pain as well as ilioinguinal pain. 2. Torn gluteus muscle on the right buttocks. 3. Hypertension. 4. Hyperlipidemia. 5. Hypercholesterolemia. 6. Chronic colo pain. 7. Stomach problems with joint disease. 8. A nodule found in the thyroid. RECOMMENDATIONS: We discussed treatment options with the patient. At this juncture, he feels that his medications are working reasonably well. We will continue with hydrocodone 10 mg 1 p.o. every 4 hours. A script for his medications have been provided. The patient will also continue with gabapentin 100 mg 1 p.o. t.i.d. We will use tizanidine p.r.n. to help with the muscle spasm component of his discomfort. The patient would like to undergo an epidural injection. He will return to the Pain Clinic in the near future to undergo an epidural steroid injection. Risks and benefits of the procedure again were reviewed with the patient. He is aware that because of the COVID-19 virus steroids can decrease one's immunity. Should he become infected he might have a more difficult time with the virus than he would have without having had the injection. [facility] [address] [place] [address] PAIN MANAGEMENT CONSULTATION Name: DARIEN MENDEZ Room: [facility]#: [id number] Admission: 02/23/20 Attend Phys: Nanette Gar MD Discharge: Date of : 60 Report #: [id number] We would like to thank you for letting us participate in his care. We hope he continues to improve. <ELECTRONICALLY SIGNED> By: Nanette Gar MD 03/03/20 1540 1432 2328N. Braulio Gar MD /nt
== END ==
LOC: M.PC 04:38
PROVIDERS: ATTEND Anesthesiology Pain Medicine
DX: M54.5 Low back pain (principal); M76.01 Gluteal tendinitis, right hip; I10 Essential (primary) hypertension; E78.5 Hyperlipidemia, unspecified; E78.00 Pure hypercholesterolemia, unspecified; K59.9 Functional intestinal disorder, unspecified; E04.1 Nontoxic single thyroid nodule; F11.20 Opioid dependence, uncomplicated; Z79.899 Other long term (current) drug therapy

== ENCOUNTER → 2020-03-01 | Outpatient (CLI) | payer OTHER | END | disposition home or self-care (01) | LOC: M.PC 04:11 | DX: M54.5 Low back pain (principal); G89.29 Other chronic pain; G57.80 Other specified mononeuropathies of unspecified lower limb; I10 Essential (primary) hypertension; E78.00 Pure hypercholesterolemia, unspecified; E78.5 Hyperlipidemia, unspecified; Z98.890 Other specified postprocedural states; Z79.899 Other long term (current) drug therapy; Z88.0 Allergy status to penicillin ==

== ENCOUNTER → 2020-04-28 | Outpatient (CLI) | payer OTHER ==
--- NOTE | 2020-05-19 08:38 | PAINCON ---
[address] [address] PAIN MANAGEMENT CONSULTATION Name: VANESSADARIEN P [id number] Admission: 04/28/20 Attend Phys: Nanette Gar MD Discharge: Date of : 60 Report #: [id number] THIS REPORT FOR: //name// cc: Martha Mancuso Christina DO ~ THIS REPORT FOR: //name// CC: Martha Gar DATE OF SERVICE: 04/28/2020 CHIEF COMPLAINT: Here for medication renewal. HISTORY: The patient is a 59-year-old gentleman who has been followed in the pain clinic. As you may recall, he has pain in the low back area. He has had pain in the ilioinguinal area as well as pain in the left leg. He has undergone epidural steroid injections. At this juncture, the pain in the ilioinguinal area is most problematic. He has returned today for renewal of his medications. He feels that the medications continue to be helpful. They enable him to stay gainfully employed. He complains of pain in the lumbar area, spinal area, area of coccyx, genitals and hip. These have been ongoing for the last 10 years. He notes that the right sciatic pain "comes and goes." It is improved since the last appointment. He rates his pain as a 2-3/10. Notes that walking stairs can be problematic. 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 This requires him to do more leg work, going up and down stairs and this has exacerbated his discomfort. ALLERGIES: PENICILLIN. CURRENT MEDICATIONS: Alprazolam 0.5 mg, Lipitor 40 mg, vitamin D 5000 units, fenofibrate, Neurontin 300 mg b.i.d., indapamide 2.5 mg, Zestril 20 mg, tizanidine 4 mg, Ambien 10 mg, melatonin, hydrocodone 10/325 1 p.o. q.4-6 hours p.r.n., meloxicam 15 mg. PAIN CLINIC ASSESSMENT AND PQRS: 1. The patient does have some arthritic changes in his knee. He is not being treated for rheumatoid arthritis. 2. Height 5 feet 10 inches, weight 206 pounds, BMI is 29.6. 3. Vital Signs: Blood pressure 160/70, heart rate 66, respiratory rate 18, room air saturation 95. 4. Pain intensity, 2-3/10. 5. Fall history. The patient has not fallen in the last 3 months. 6. Blood thinner. The patient is not on a blood thinning medication. 7. Hypertension. The patient is not being treated for hypertension. 8. Blood thinner. The patient is not on [place] [address] PAIN MANAGEMENT CONSULTATION Name: DARIEN MENDEZ Room: [facility]#: [id number] Admission: 04/28/20 Attend Phys: Nanette Gar MD Discharge: Date of : 60 Report #: [id number] 9. Opioids. The patient receives medication from one source, the pain clinic. 10. Risk assessment tool, low for opioid use. 11. Functional assessment tool, reviewed. 12. Recreational drug use. The patient denies. 13. Tobacco. The patient denies use of tobacco. 14. Alcohol. The patient occasionally drinks alcoholic beverages. PHYSICAL EXAMINATION: GENERAL: The patient is a well-developed, well-nourished, white male. Appears his stated age. He is alert and oriented x 3. His affect is appropriate. Speech is fluent. HEENT: Normocephalic, atraumatic. Extraocular eye muscles intact. Sclerae nonicteric. Mucous membranes are moist. The patient is wearing a facial covering. NECK: Without adenopathy or JVD. HEART: Regular rate. LUNGS: Generally clear. EXTREMITIES: Upper extremity muscle strength judged to be 5/5 for the major muscle groups in the upper extremity. The patient without significant scoliosis, kyphosis, or lordosis. The patient does have some pain and discomfort in the L5-S1 dermatomal distribution and pain in the area of the ilioinguinal nerve at L2-L3 at this juncture. IMPRESSION: 1. Nerve root irritation in the ilioinguinal level. 2. Torn gluteus muscle on the right buttocks. 3. Hypertension. 4. Hyperlipidemia. 5. Hypercholesterolemia. 6. Chronic colon pain. 7. Stomach problems with joint disease. 8. Nodule in the thyroid. RECOMMENDATIONS: We discussed treatment options with the patient. At this juncture, we will continue with the patient's medication. A script for his medications has been provided. They will be sent to his pharmacy. We will continue with hydrocodone 10/325 1 p.o. q.4-6 hours, total of 100 tablets for the next month and the month thereafter. He will also continue with tizanidine as a muscle relaxant 1 p.o. 4 mg t.i.d. He will continue with Neurontin 100 mg 1 p.o. t.i.d. He will call us if he has any concerns. We would like to thank you for letting us participate in his care. He will [place] [address] PAIN MANAGEMENT CONSULTATION Name: DARIEN MENDEZ Room: [facility] Zimmer#: [id number] Admission: 04/28/20 Attend Phys: Nanette Gar MD Discharge: Date of : 60 Report #: [id number] return to the pain clinic at which time he will undergo an epidural injection to help quell the ilioinguinal pain and discomfort. <ELECTRONICALLY SIGNED> By: Nanette Gar MD 05/19/20 0838 [id number]. Braulio Gar MD /[facility]
== END ==
LOC: M.PC 08:00
PROVIDERS: ATTEND Anesthesiology Pain Medicine
DX: Z76.0 Encounter for issue of repeat prescription (principal); I10 Essential (primary) hypertension; E78.5 Hyperlipidemia, unspecified; E78.00 Pure hypercholesterolemia, unspecified; R10.9 Unspecified abdominal pain; E04.1 Nontoxic single thyroid nodule; Z88.0 Allergy status to penicillin; Z79.899 Other long term (current) drug therapy

== ENCOUNTER → 2020-05-05 | Outpatient (CLI) | payer OTHER | END | disposition home or self-care (01) | LOC: M.PC 07:51 | PROVIDERS: ATTEND Anesthesiology Pain Medicine | DX: M54.16 Radiculopathy, lumbar region (principal); G89.29 Other chronic pain; I10 Essential (primary) hypertension; E78.00 Pure hypercholesterolemia, unspecified; E78.5 Hyperlipidemia, unspecified; Z98.890 Other specified postprocedural states; Z79.899 Other long term (current) drug therapy ==

== ENCOUNTER → 2020-06-16 | Outpatient (CLI) | payer OTHER ==
--- NOTE | 2020-06-17 08:24 | PAINCON ---
[address] [address] PAIN MANAGEMENT CONSULTATION Name: DARIEN MENDEZ [id number] Admission: 06/16/20 Attend Phys: Nanette Gar MD Discharge: Date of : 60 Report #: [id number] THIS REPORT FOR: //name// cc: HARRIET CARVALHO DO Physician not on staff ~ CC: HARRIET CARVALHO Dr. ____ Nanette Gar Physician staff DATE OF SERVICE: 06/16/2020 CHIEF COMPLAINT: "I am having new pain in my right leg. It is hard for me to stand. It goes down to my knee." HISTORY: The patient is a 59-year-old gentleman who has been followed in the Pain Clinic because of chronic pain. He has a problem with ilioinguinal neuralgia. He has undergone injections in the back area to help with the pain. He finds that this usually works quite well. He has a new pain and discomfort. It involves his right leg. Radiates down of the right buttocks down into the anterior portion of his thigh and lateral portion of the thigh to the level of the knee. States that he finds it difficult to stand up to use the restroom. He has been sitting down because of the pain while standing. He feels that this is somewhat of a new pain. In the past, he had something similar to this. He feels that an injection would be beneficial. He rates the pain as an 8-9. He finds that this pain is quite aggravating. Walking and standing are problematic. He can remain active at work. ALLERGIES: PENICILLIN. CURRENT MEDICATIONS: Alprazolam 0.5 mg, Lipitor 40 mg, vitamin D 5000 units, fenofibrate, Neurontin 300 mg b.i.d., indapamide 2.5 mg, Zestril 20 mg, tizanidine 4 mg t.i.d., Ambien 10 mg, melatonin, hydrocodone 10/325 one q. 4-6 hours, meloxicam 15 mg daily. PAIN CLINIC ASSESSMENT AND PQRS: 1. The patient does have some arthritic changes in his knee. He is not being treated for rheumatoid arthritis. 2. Height 5 feet 10 inch, weight 210 pounds, BMI is 30. 3. Vital signs: Blood pressure 106/66, heart rate 78, respiratory rate 16, room air saturation 95%, temperature 98.0. 4. Pain intensity is an 8/10. 5. Fall history: The patient has not fallen in the last few months. The patient is not on a blood thinning medication. 6. Hypertension. The patient is not being treated for hypertension. 7. Opioids. The patient receives medication from [place] [address] PAIN MANAGEMENT CONSULTATION Name: DARIEN MENDEZ Gbariel Room: [facility]#: [id number] Admission: 06/16/20 Attend Phys: Nanette Gar MD Discharge: Date of : 60 Report #: [id number] 8. Risk assessment tool, low for opioid use. 9. Functional assessment tool reviewed. 10. Recreational drug use: The patient denies. 11. Tobacco: The patient denies use of tobacco. 12. Alcohol: The patient occasionally drinks alcoholic beverages. PHYSICAL EXAMINATION: GENERAL: The patient is a well-developed, well-nourished white male. Appears his stated age. He is alert and oriented x 3. His affect is appropriate. Speech is fluent. HEENT: Normocephalic, atraumatic. Extraocular eye muscles intact. Sclerae nonicteric. The patient is wearing a facial covering. NECK: Without adenopathy or JVD. HEART: Regular rate. LUNGS: Clear. EXTREMITIES: Upper extremity muscle strength is judged to be 5/5 for the major muscle groups in the upper extremity. The patient is without significant scoliosis, kyphosis or lordosis. The patient has pain and discomfort in the right side along the L5-S1 dermatomal distribution and L4-L5 dermatomal distribution. He feels that the pain in this area has been more problematic. IMPRESSION: 1. Nerve root irritation in the right L4-L5/L5-S1 dermatomal distribution. 2. Torn gluteus muscle on the right buttocks. 3. Hypertension. 4. Hyperlipidemia. 5. Hypercholesterolemia. 6. Chronic colon pain. 7. Chronic problems with stomach. 8. Joint disease. 9. Thyroid nodule. RECOMMENDATIONS: We discussed treatment options with the patient. At this juncture, we will continue with his medications. A script for his medications has been reviewed. The patient is aware that opioid medications can become problematic for some patients. He has taken the medication as prescribed. He is aware that opioid medications can become less effective as time goes on. Feels that the tizanidine muscle relaxant medication is helpful. Feels that the hydrocodone medications to help quell the pain. Feels that the Neurontin medication is beneficial in helping control the pain and irritation of the ilioinguinal area as well. He would like to have his medications renewed. He will follow up in the near future with the hopes of undergoing an epidural steroid injection to help quell the pain involving the right side. [address] [place] [address] PAIN MANAGEMENT CONSULTATION Name: DARIEN MENDEZ Gabriel Room: [facility]#: [id number] Admission: 06/16/20 Attend Phys: Nanette Gar MD Discharge: Date of : 60 Report #: [id number] We would like to thank you for letting us participate in his care. We hope he continues to improve. <ELECTRONICALLY SIGNED> By: Nanette Gar MD 06/17/20 0824 [id number]. Braulio Gar MD /nt
== END ==
LOC: M.PC 07:50
PROVIDERS: ATTEND Anesthesiology Pain Medicine
DX: M79.604 Pain in right leg (principal); I10 Essential (primary) hypertension; E78.00 Pure hypercholesterolemia, unspecified; M25.50 Pain in unspecified joint; E04.1 Nontoxic single thyroid nodule; Z88.0 Allergy status to penicillin; Z79.899 Other long term (current) drug therapy

== ENCOUNTER → 2020-06-23 | Outpatient (CLI) | payer OTHER ==
--- NOTE | ~2020-06-23 | PAINCON ---
[address] [address] PAIN MANAGEMENT CONSULTATION Name: DARIEN MENDEZ [facility] [id number] Admission: 06/23/20 Attend Phys: Nanette Gar MD Discharge: Date of : 60 Report #: [id number] THIS REPORT FOR: //name// cc: Physician not on staff Physician not on staff ~ CC: Martha Morel Physician staff DATE OF SERVICE: 06/23/2020 CHIEF COMPLAINT: Pain in the right leg down [id number]. HISTORY: The patient is a 59-year-old gentleman who has been followed in the pain clinic because of chronic pain. He has pain in the 2 areas. Has pain in the inguinal area on the left. He is having pain today in the right low back area with pain radiating down into his legs, hips and rates the pain today as 5/10. He uses hydrocodone, gabapentin and tizanidine to help with the pain. Notes that the pain at this juncture is worse with walking as well as prolonged standing. He has undergone epidural steroid injections in the past. He has found that these have been beneficial. This pain is similar to the pain he has experienced in the past and noted improvement with after an injection. He has returned today for an epidural steroid injection. ALLERGIES: PENICILLIN. CURRENT MEDICATIONS: Alprazolam 0.5 mg, Lipitor 40 mg, vitamin D 5000 units, fenofibrate, Neurontin 300 mg b.i.d., indapamide 2.5 mg, Zestril 20 mg, tizanidine 4 mg t.i.d., Ambien 10 mg, melatonin, hydrocodone 10/325 q. 4-6 hours, meloxicam 15 mg. PAIN CLINIC ASSESSMENT AND PQRS: 1. The patient has some osteoarthritic changes in his low back area. He is not being treated for rheumatoid arthritis. 2. Height 5 feet 10 inches, weight 208 pounds, BMI is 29.9. 3. Vital Signs: Blood pressure 113/77, heart rate 79, respiratory rate 16, room air saturation 95%, temperature is 97.8. 4. Pain intensity 5/10. 5. Fall history: The patient has not fallen in the last 3 months. 6. Blood thinner. The patient is not on a blood thinning medication. 7. Opioids. The patient receives medication from the pain clinic. 8. Risk assessment tool, low for opioid use. 9. Functional assessment tool reviewed. 10. Recreational drug use: The patient denies. 11. Tobacco: The patient denies use of tobacco. 12. Alcohol: The [place] [address] PAIN MANAGEMENT CONSULTATION Name: DARIEN MENDEZ Room: [facility]#: [id number] Admission: 06/23/20 Attend Phys: Nanette Gar MD Discharge: Date of : 60 Report #: [id number] PHYSICAL EXAMINATION: GENERAL: The patient is a well-developed, well-nourished white male. Appears his stated age. He is alert and oriented x 3. His affect is appropriate. Speech is fluent. HEENT: Normocephalic, atraumatic. Extraocular eye muscles intact. Sclerae nonicteric. The patient is wearing a facial covering. NECK: Without adenopathy or JVD. HEART: Regular rate. LUNGS: Clear. ABDOMEN: Nontender. EXTREMITIES: Muscle strength 5/5 for the major muscle groups in the lower extremity. The patient has some pain in the lower portion of his back in the L4-L5 dermatomal distribution today. The patient without significant scoliosis, kyphosis or lordosis. The patient would like to proceed with an injection. IMPRESSION: 1. Nerve root irritation at the L4-L5 dermatomal distribution. 2. Torn gluteal muscle on the right buttocks. 3. Hypertension. 4. Hyperlipidemia. 5. Hypercholesterolemia. 6. Chronic colon pain. 7. Chronic problems with stomach. 8. Joint disease. 9. Thyroid nodule. RECOMMENDATIONS: We discussed treatment options with the patient. At this juncture, we will proceed with an epidural steroid injection. Risks and benefits of the procedure were discussed. They include, but are not limited to infection, worsening pain, no improvement in pain, nerve damage, bleeding. The patient is aware that COVID pandemic is present. Steroids can decrease one's immune response. The patient is aware and would like to proceed with an injection. PROCEDURE NOTE: The patient was taken to the procedure area. He was then assisted in getting on examination table. His back was sterilely prepped with a Betadine solution. A 0.25% bupivacaine was infiltrated. A 17-gauge Tuohy with loss of resistance technique was used to gain access to the epidural space. There was no CSF, heme or paresthesia. Total of 80 mg Depo-Medrol, 40 mg triamcinolone and 2 mL of 0.25% bupivacaine was injected. The patient tolerated the procedure well. There were no complications. [place] [address] PAIN MANAGEMENT CONSULTATION Name: DARIEN MENDEZ Room: [facility]#: [id number] Admission: 06/23/20 Attend Phys: Nanette Gar MD Discharge: Date of : 60 Report #: [id number] clinic for an appropriate amount of time. He will follow up in the future as needed. By: [id number]. Braulio Gar MD /JAK
== END | disposition home or self-care (01) ==
LOC: M.PC 06-22 12:59
PROVIDERS: ATTEND Anesthesiology Pain Medicine
DX: M54.5 Low back pain (principal); I10 Essential (primary) hypertension; E78.00 Pure hypercholesterolemia, unspecified; K63.89 Other specified diseases of intestine; E04.1 Nontoxic single thyroid nodule; M25.561 Pain in right knee; Z88.0 Allergy status to penicillin; Z79.899 Other long term (current) drug therapy

== ENCOUNTER → 2020-08-11 | Outpatient (CLI) | payer OTHER | LOC: M.PC 07:47 | PROVIDERS: ATTEND Anesthesiology Pain Medicine | DX: M54.9 Dorsalgia, unspecified (principal); M77.52 Other enthesopathy of left foot and ankle ==

== ENCOUNTER → 2020-08-16 | Outpatient (CLI) | payer OTHER | END | disposition home or self-care (01) | LOC: M.PC 07:43 | PROVIDERS: ATTEND Anesthesiology Pain Medicine | DX: M54.16 Radiculopathy, lumbar region (principal); G89.29 Other chronic pain; I10 Essential (primary) hypertension; E78.00 Pure hypercholesterolemia, unspecified; E78.5 Hyperlipidemia, unspecified; M19.90 Unspecified osteoarthritis, unspecified site; Z98.890 Other specified postprocedural states; Z79.899 Other long term (current) drug therapy; Z88.0 Allergy status to penicillin ==

== ENCOUNTER → 2020-10-18 | Outpatient (CLI) | payer OTHER ==
[~2020-10-18] MED LIST changes: +NEURONTIN300 MG PO
== END ==
LOC: M.PC 10-11 08:00
PROVIDERS: ATTEND Anesthesiology Pain Medicine
DX: G57.82 Other specified mononeuropathies of left lower limb (principal); E78.5 Hyperlipidemia, unspecified; E78.00 Pure hypercholesterolemia, unspecified; K63.89 Other specified diseases of intestine; K31.89 Other diseases of stomach and duodenum; M25.9 Joint disorder, unspecified; Z79.82 Long term (current) use of aspirin; Z79.891 Long term (current) use of opiate analgesic; Z79.899 Other long term (current) drug therapy

== ENCOUNTER → 2020-11-22 | Outpatient (CLI) | payer OTHER ==
[~2020-11-22] MED LIST changes: +LIPITOR40 MG PO
== END | disposition home or self-care (01) ==
LOC: M.PC 08:22
PROVIDERS: ATTEND Anesthesiology Pain Medicine
DX: M54.16 Radiculopathy, lumbar region (principal); G89.29 Other chronic pain; I10 Essential (primary) hypertension; E78.00 Pure hypercholesterolemia, unspecified; E78.5 Hyperlipidemia, unspecified; Z98.890 Other specified postprocedural states; Z79.899 Other long term (current) drug therapy; Z87.19 Personal history of other diseases of the digestive system; Z88.0 Allergy status to penicillin

== ENCOUNTER → 2021-01-12 | Outpatient (CLI) | payer OTHER | END | disposition home or self-care (01) | LOC: M.PC 08:29 | PROVIDERS: ATTEND Anesthesiology Pain Medicine | DX: M54.16 Radiculopathy, lumbar region (principal); G89.29 Other chronic pain; I10 Essential (primary) hypertension; E78.5 Hyperlipidemia, unspecified; G62.9 Polyneuropathy, unspecified; E78.00 Pure hypercholesterolemia, unspecified; M19.90 Unspecified osteoarthritis, unspecified site; Z98.890 Other specified postprocedural states; Z79.899 Other long term (current) drug therapy; Z88.0 Allergy status to penicillin ==

== ENCOUNTER → 2021-03-09 | Outpatient (CLI) | payer OTHER | END | disposition home or self-care (01) | LOC: M.PC 07:37 | PROVIDERS: ATTEND Anesthesiology Pain Medicine | DX: M54.16 Radiculopathy, lumbar region (principal); G89.29 Other chronic pain; I10 Essential (primary) hypertension; E78.5 Hyperlipidemia, unspecified; E78.00 Pure hypercholesterolemia, unspecified; M19.90 Unspecified osteoarthritis, unspecified site; Z98.890 Other specified postprocedural states; Z79.899 Other long term (current) drug therapy; Z88.0 Allergy status to penicillin; Z88.8 Allergy status to other drugs, medicaments and biological substances ==

== ENCOUNTER → 2021-05-04 | Outpatient (CLI) | payer OTHER | END | disposition home or self-care (01) | LOC: M.PC 08:10 | PROVIDERS: ATTEND Anesthesiology Pain Medicine | DX: M54.16 Radiculopathy, lumbar region (principal); G89.29 Other chronic pain; I10 Essential (primary) hypertension; E78.00 Pure hypercholesterolemia, unspecified; E78.5 Hyperlipidemia, unspecified; Z98.890 Other specified postprocedural states; Z79.899 Other long term (current) drug therapy; Z88.0 Allergy status to penicillin ==

== ENCOUNTER → 2021-06-29 | Outpatient (CLI) | payer OTHER | END | disposition home or self-care (01) | LOC: M.PC 07:55 | PROVIDERS: ATTEND Anesthesiology Pain Medicine | DX: M54.16 Radiculopathy, lumbar region (principal); G89.29 Other chronic pain; I10 Essential (primary) hypertension; E78.00 Pure hypercholesterolemia, unspecified; E78.5 Hyperlipidemia, unspecified; Z87.19 Personal history of other diseases of the digestive system; M19.90 Unspecified osteoarthritis, unspecified site; Z98.890 Other specified postprocedural states; Z79.899 Other long term (current) drug therapy; Z88.0 Allergy status to penicillin ==

== ENCOUNTER → 2021-09-07 | Outpatient (CLI) | payer OTHER | END | disposition home or self-care (01) | LOC: M.PC 08-24 08:10 | PROVIDERS: ATTEND Anesthesiology Pain Medicine | DX: M54.16 Radiculopathy, lumbar region (principal); G89.29 Other chronic pain; I10 Essential (primary) hypertension; E78.5 Hyperlipidemia, unspecified; E78.00 Pure hypercholesterolemia, unspecified; Z98.890 Other specified postprocedural states; Z79.899 Other long term (current) drug therapy; Z88.0 Allergy status to penicillin ==